=== PATIENT | female | born 1955 | race Caucasian/White ===

== ENCOUNTER 2016-03-01 | Outpatient (CLI) | payer MEDICARE, MEDICAID | END 2016-03-01 18:35 | disposition critical access hospital (66) | CPT/HCPCS: A0425; A0429 ==

== ENCOUNTER 2016-03-01 18:50 | Emergency (ER) | payer MEDICARE, MEDICAID ==
[2016-03-01] MEDS ORDERED: OLANZapine 10 MG VIAL IM ONE (23:28)
[2016-03-01] MEDS ORDERED: WATER FOR INJECTION,STERILE 10 ML ONE (23:29)
[2016-03-01] MEDS ORDERED: OLANZapine 10 MG VIAL IM STA (23:29)
== END 2016-03-02 09:35 ==
DX: F31.2 Bipolar disorder, current episode manic severe with psychotic features (principal); F41.9 Anxiety disorder, unspecified; Z91.14 Patient's other noncompliance with medication regimen
CPT/HCPCS: 36415; 80053; 80306; 80307; 81003; 81025; 83036; 83690; 84443; 85025; 96372; 99284; 99285; G0480

== ENCOUNTER 2016-04-02 | Outpatient (CLI) | payer MEDICARE, MEDICAID | END 2016-04-02 00:19 | disposition critical access hospital (66) | CPT/HCPCS: A0425; A0427 ==

== ENCOUNTER 2016-04-02 00:33 | Emergency (ER) | payer MEDICARE, MEDICAID ==
[2016-04-02] MEDS ORDERED: POTASSIUM CHLOR 20 MEQ/100 ML 100 ML IV ONE (01:39)
[2016-04-02] MEDS ORDERED: POTASSIUM CHLOR 10 MEQ/100 ML 100 ML IV ONE (01:43)
[2016-04-02] MEDS ORDERED: OLANZapine 10 MG VIAL IM STA ×2 (01:48→15:21)
[2016-04-02] MEDS ORDERED: OLANZapine 10 MG VIAL IM ONE ×2 (01:49→15:19)
[2016-04-02] MEDS ORDERED: WATER FOR INJECTION,STERILE 10 ML ONE (15:19)
== END 2016-04-02 20:45 ==
DX: F31.64 Bipolar disorder, current episode mixed, severe, with psychotic features (principal); R40.20 Unspecified coma; X00.0XXA Exposure to flames in uncontrolled fire in building or structure, initial encounter; Y93.84 Activity, sleeping; Y92.003 Bedroom of unspecified non-institutional (private) residence as the place of occurrence of the external cause; Y99.8 Other external cause status; E87.6 Hypokalemia; G35 Multiple sclerosis; M25.572 Pain in left ankle and joints of left foot; Z78.1 Physical restraint status
CPT/HCPCS: 36415; 36600; 71010; 73610; 80053; 80306; 80307; 81001; 81025; 82375; 82550; 82803; 83690; 84132; 84443; 84484; 85025; 93005; 93010; 96372; 96374; 99285; G0480

== ENCOUNTER 2016-05-03 13:54 | Outpatient (CLI) | payer MEDICARE, MEDICAID | END 2016-05-03 13:55 | disposition EMS.NT | DX: Z04.8 Encounter for examination and observation for other specified reasons (principal) ==

== ENCOUNTER 2016-05-03 15:07 | Outpatient (CLI) | payer MEDICAID, MEDICARE | END 2016-05-03 15:08 | disposition EMS.NT | DX: R68.89 Other general symptoms and signs (principal) | CPT/HCPCS: A0425; A0429 ==

== ENCOUNTER 2016-05-03 15:22 | Emergency (ER) | payer MEDICARE, MEDICAID ==
[2016-05-03] MEDS ORDERED: OLANZapine ODT 5 MG TABLET TL ONE ×2 (17:56→17:59)
[2016-05-03] MEDS ORDERED: CETIRIZINE 10 MG TABLET ONE (17:58)
== END 2016-05-03 22:55 ==
DX: F31.9 Bipolar disorder, unspecified (principal); F20.9 Schizophrenia, unspecified
CPT/HCPCS: 36415; 80053; 80306; 80307; 81003; 83690; 85025; 99284; A9270; G0480

== ENCOUNTER 2016-05-03 23:03 | Outpatient (CLI) | payer MEDICARE, MEDICAID | END 2016-05-03 23:04 | DX: F31.9 Bipolar disorder, unspecified (principal) | CPT/HCPCS: A0425; A0428 ==

== ENCOUNTER 2016-10-25 15:13 | Outpatient (CLI) | payer MEDICARE ==
--- NOTE | 2016-10-26 09:42 | XRAY Report ---
LEFT RIBS WITH FRONTAL CHEST: 10/25/2016 CLINICAL INDICATION: Left 2nd rib pain. FINDINGS: Frontal view of the chest and oblique views of the left ribs demonstrate no evidence of a displaced rib fracture. The cardiac silhouette is within normal limits. The lungs are clear. No effus ion or pneumothorax is present. IMPRESSION: NO EVIDENCE OF A DISPLACED LEFT RIB FRACTURE. JOB #: [id number] EXT JOB #:[id number]
--- NOTE | 2016-10-26 09:44 | XRAY Report ---
THREE VIEW LUMBAR SPINE: 10/25/2016 CLINICAL INDICATION: Pain. FINDINGS: AP, lateral, and coned down views of the lumbar spine demonstrate mild degenerative disk a nd facet disease. There is no evidence of fracture or subluxation. The bowel gas pattern appears norm al. IMPRESSION: MILD DEGENERATIVE CHANGES. JOB #: [id number] EXT JOB #:[id number]
--- NOTE | 2016-10-26 09:47 | XRAY Report ---
THREE VIEW LEFT KNEE: 10/25/2016 CLINICAL INDICATION: Contusion, pain. FINDINGS: AP, lateral, and sunrise views of the left knee demonstrate mild osteoarthritis. A small e ffusion is present. There is no evidence of fracture or dislocation. IMPRESSION: MILD OSTEOARTHRITIS, WITH A SMALL EFFUSION. JOB #: [id number] EXT JOB #:[id number]
== END 2016-10-25 15:14 | disposition home or self-care (01) ==
LOC: DI 15:13
PROVIDERS: ATTEND Family Medicine
DX: R07.81 Pleurodynia (principal); M54.5 Low back pain; S80.02XA Contusion of left knee, initial encounter; M17.12 Unilateral primary osteoarthritis, left knee
CPT/HCPCS: 72100

== ENCOUNTER 2016-11-09 20:30 | Outpatient (CLI) | payer MEDICARE | END 2016-11-09 20:31 | disposition critical access hospital (66) | LOC: EMS 20:30 | PROVIDERS: ATTEND Surgery | DX: T42.6X2A Poisoning by other antiepileptic and sedative-hypnotic drugs, intentional self-harm, initial encounter (principal); R40.0 Somnolence; R26.81 Unsteadiness on feet; R41.82 Altered mental status, unspecified | CPT/HCPCS: A0425; A0429 ==

== ENCOUNTER 2016-11-09 20:48 | Emergency (ER) | payer MEDICARE ==
[2016-11-09 21:39] LABS: BILIRUBIN,URINE NEGATIVE (NEGATIVE); PH,URINE 6.5 PH (5.0-7.5)
--- NOTE | 2016-11-09 21:42 | ED Physician Documentation ---
PD HPI MHE - Stated complaint Stated Complaint: OD - Chief complaint Chief Complaint: MHE - History obtained from History obtained from: Patient, EMS - History of Present Illness Primary symptom: Suicidal ideation, Depression, Anxiety Timing - onset: How many days ago (few) Contributing factors: Other (she says she is [place] and it is currently a holy holiday and she is sad that she cannot be in [place]. She is feeling depressed, and this evening was having suicidal thoughts. Denies any action taken. She took 3 Ambien and had some alcohol in order to sleep, but denies it as suicide attempt.) Similar symptoms before: Diagnosis (depression, suicidal ideation, bipolar) Review of Systems Constitutional: denies: Fever Nose: denies: Rhinorrhea / runny nose, Congestion Throat: denies: Sore throat Cardiac: denies: Chest pain / pressure Respiratory: reports: Dyspnea, Cough (mild) GI: denies: Nausea, Vomiting, Diarrhea Skin: denies: Abrasion (s), Laceration (s) Neurologic: denies: Focal weakness, Numbness, Near syncope Psychiatric: reports: Depressed, Suicidal. 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 - Present Medications Home Medications: Ambulatory Orders Medication Instructions Recorded Confirmed ALPRAZolam [Xanax] 0 mg PO .FREQ 05/03/16 05/03/16 - Allergies Allergies/Adverse Reactions: Allergies Allergy/AdvReac Type Severity Reaction Status Date / Time Sulfa (Sulfonamide Allergy Unknown Verified 09/17/15 18:10 Antibiotics) - Living Situation Living Situation: reports: Alone Living Arrangement: reports: At home - Social History Does the pt smoke?: No Smoking Status: Never smoker Does the pt drink ETOH?: Yes ETOH Use: Liquor Does the pt have substance abuse?: No - Family History Family history: reports: Non contributory - POLST Patient has POLST: No PD ED PE NORMAL - Vitals Vital signs reviewed: Yes - General General: Alert and oriented X 3, No acute distress, Well developed/nourished - HEENT HEENT: Atraumatic, Pharynx benign - Neck Neck: Supple, no meningeal sign, No adenopathy - Cardiac Cardiac: RRR, No murmur - Respiratory Respiratory: Clear bilaterally - Abdomen Abdomen: Soft, Non tender - Derm Derm: Normal color, Warm and dry - Extremities Extremities: Normal ROM s pain, No edema, No calf tenderness / cord - Neuro Neuro: Alert and oriented X 3, No motor deficit, Normal speech - Psych Psych: No: Normal mood (somewhat sad, not tearful. ) Results - Vitals Vitals: Vital Signs - 24 hr 11/09/16 11/10/16 20:55 02:11 Temperature 36.3 C L Heart Rate 63 84 Respiratory 18 16 Rate Blood Pressure 116/75 95/53 L O2 Saturation 98 98 Oxygen O2 Source Room air - Labs Labs: Laboratory Tests 11/09/16 11/09/16 11/09/16 21:10 22:05 22:05 WBC 5.4 RBC 4.67 Hgb 14.5 Hct 43.7 MCV 93.6 MCH 31.0 MCHC 33.2 RDW 12.9 Plt Count 263 MPV 7.6 L Neut # 2.4 Lymph # 2.5 [place] # 0.3 Eos # 0.1 Baso # 0.0 Absolute Nucleated RBC 0.00 Nucleated RBCs 0.1 Sodium 141 Potassium 3.8 Chloride 106 Carbon Dioxide 23 Anion Gap 12.0 BUN 13 Creatinine 0.7 Estimated GFR (MDRD) 85 L Glucose 80 Calcium 9.3 Total Bilirubin 0.7 AST 26 ALT 23 Alkaline Phosphatase 57 Total Protein 7.1 Albumin 4.5 Globulin 2.6 Albumin/Globulin Ratio 1.7 Lipase 28 TSH Urine Color YELLOW Urine Clarity CLEAR Urine pH 6.5 Ur Specific [place] <=1.005 Urine Protein NEGATIVE Urine Glucose (UA) NEGATIVE Urine Ketones NEGATIVE Urine Occult Blood NEGATIVE Urine Nitrite NEGATIVE Urine Bilirubin NEGATIVE Urine Urobilinogen 0.2 (NORMAL) Ur Leukocyte Esterase NEGATIVE Ur Microscopic Review NOT INDICATED Urine Culture Comments NOT INDICATED Salicylates < 6.0 Urine Opiates Screen NEGATIVE Ur Oxycodone Screen NEGATIVE Urine Methadone Screen NEGATIVE Ur Propoxyphene Screen NEGATIVE Acetaminophen < 10 L Ur Barbiturates Screen NEGATIVE Ur Tricyclics Screen NEGATIVE Ur Phencyclidine Scrn NEGATIVE Ur Amphetamine Screen NEGATIVE U Methamphetamines Scrn NEGATIVE U Benzodiazepines Scrn NEGATIVE Urine Cocaine Screen NEGATIVE U Cannabinoids Screen NEGATIVE Ethyl Alcohol 115.3 11/09/16 22:05 WBC RBC Hgb Hct MCV MCH MCHC RDW Plt Count MPV Neut # Lymph # [place] # Eos # Baso # Absolute Nucleated RBC Nucleated RBCs Sodium Potassium Chloride Carbon Dioxide Anion Gap BUN Creatinine Estimated GFR (MDRD) Glucose Calcium Total Bilirubin AST ALT Alkaline Phosphatase Total Protein Albumin Globulin Albumin/Globulin Ratio Lipase TSH 1.24 Urine Color Urine Clarity Urine pH Ur Specific [place] Urine Protein Urine Glucose (UA) Urine Ketones Urine Occult Blood Urine Nitrite Urine Bilirubin Urine Urobilinogen Ur Leukocyte Esterase Ur Microscopic Review Urine Culture Comments Salicylates Urine Opiates Screen Ur Oxycodone Screen Urine Methadone Screen Ur Propoxyphene Screen Acetaminophen Ur Barbiturates Screen Ur Tricyclics Screen Ur Phencyclidine Scrn Ur Amphetamine Screen U Methamphetamines Scrn U Benzodiazepines Scrn Urine Cocaine Screen U Cannabinoids Screen Ethyl Alcohol PD MEDICAL DECISION MAKING - ED course Complexity details: reviewed results, re-evaluated patient (sleepy but not overly sedated. Breathing status is okay. ), considered differential (She says she does not want to go home right now and says she does not know if she would hurt herself. She denies suicidal intent here in ED. She would like to go to [facility]. [facility] Patient resting comfortably and sleeping in ED. At this point would presume to have her stay overnight and then reassess in AM; SW in AM. ), d/w patient, other (Patient slept well through night. She is calm and relaxed on awakening. She denies suicidal ideation. She wants to get to restorationist for [place], and promises that she does not want to hurt herself. Will discharge her. She is going to call friend for a ride. ) Departure - Departure Disposition: 01 Home, Self Care Clinical Impression: Anxiety, Suicidal ideation Depression Qualifiers: Depression Type: unspecified Qualified Code(s): F32.9 - Major depressive disorder, single episode, unspecified Alcohol intoxication Qualifiers: Complication of substance-induced condition: uncomplicated Qualified Code(s): F10.920 - Alcohol use, unspecified with intoxication, uncomplicated Condition: Stable Record reviewed to determine appropriate education?: Yes Instructions: ED Depression Comments: Usual medications and drink lots of fluids. Return or follow-up with your primary care if he has feelings of depression or wanting to hurt yourself. You could also call the crisis line if you need someone to talk to.
[2016-11-09 21:43] LABS: UA CHARGE (STRIP ONLY) YES; UR CULTURE IF IND NOT INDICATED
[2016-11-09 22:14] LABS: BASOPHILS % (AUTO) 0.7 %; EOSINOPHILS # (AUTO) 0.1 10^3/uL (0.0-0.7); EOSINOPHILS % (AUTO) 2.3 %; HCT - HEMATOCRIT 43.7 % (37.0-47.0); HGB - HEMOGLOBIN 14.5 g/dL (12.0-16.0); LYMPHOCYTES # (AUTO) 2.5 10^3/uL (1.5-3.5); LYMPHOCYTES % (AUTO) 45.7 %; MEAN CORPUSCULAR HGB CONC 33.2 g/dL (32.0-36.0); MEAN CORPUSCULAR VOLUME 93.6 fL (81.0-99.0); MEAN PLATELET VOLUME 7.6 fL (7.9-10.8); MONOCYTES # (AUTO) 0.3 10^3/uL (0.0-1.0); MONOCYTES % (AUTO) 6.4 %; NEUTROPHILS # (AUTO) 2.4 10^3/uL (1.5-6.6); NEUTROPHILS % (AUTO) 44.9 %; NUCLEATED RED BLOOD CELLS AUTO 0.1 /100WBC; RED BLOOD COUNT 4.67 10^6/uL (4.20-5.40); RED CELL DISTRIBUTION WIDTH 12.9 % (12.0-15.0); UNCORRECTED WHITE BLOOD COUNT 5.4 x10^3/uL; WHITE BLOOD COUNT 5.4 x10^3/uL (4.8-10.8)
[2016-11-09 22:27] LABS: ACETAMINOPHEN < 10 ug/mL (10-30); ALBUMIN/GLOBULIN RATIO 1.7 (1.0-2.2); BILIRUBIN,TOTAL 0.7 mg/dL (0.2-1.0); BUN - BLOOD UREA NITROGEN 13 mg/dL (6-20); CALCIUM 9.3 mg/dL (8.5-10.3); CARBON DIOXIDE - CO2 23 mmol/L (21-32); CHLORIDE 106 mmol/L (101-111); CREATININE 0.7 mg/dL (0.4-1.0); GFR - MDRD 85 (>89); GLUCOSE 80 mg/dL (70-100); LIPASE 28 U/L (22-51); POTASSIUM 3.8 mmol/L (3.5-5.0); SALICYLATE < 6.0 mg/dL; SODIUM 141 mmol/L (135-145); TOTAL PROTEIN 7.1 g/dL (6.7-8.2)
[2016-11-10 06:58] VITALS: BP 101/63
== END 2016-11-10 06:59 | disposition home or self-care (01) ==
LOC: EDUNIT# → ED 20:48
DX: F41.9 Anxiety disorder, unspecified (principal); R45.851 Suicidal ideations; F32.9 Major depressive disorder, single episode, unspecified; F10.920 Alcohol use, unspecified with intoxication, uncomplicated
CPT/HCPCS: 36415; 80053; 80306; 80307; 81003; 83690; 84443; 85025; 99283; 99284; G0480; 80320; 80329; 81001; 87086

== ENCOUNTER 2016-11-12 17:10 | Outpatient (CLI) | payer MEDICARE ==
--- NOTE | 2016-11-12 19:34 | Ultrasound Preliminary Report ---
Exam: US Pelvic w/Transvaginal IMPRESSION: 1. Unremarkable pelvic ultrasound. 2. Right ovary not visualized due to obscuring bowel. No adnexal abnormality demonstrated. [facility] SITE ID: [id number]
--- NOTE | 2016-11-12 19:37 | Ultrasound Report ---
EXAM: PELVIC ULTRASOUND EXAM DATE: 11/12/2016 07:11 PM. CLINICAL HISTORY: UTI, VAGINAL BLEEDING. COMPARISON: No ultrasound comparison. CT abdomen pelvis 01/21/2015. TECHNIQUE: Realtime transabdominal pelvic scan performed to identify the uterus and adnexa and as an overview of other pelvic structures, followed by transvaginal scan to provide greater detail of the u terus and adnexa, with static image documentation. FINDINGS: Uterus: 6.0 x 2.3 x 4.1 cm, volume 30 cc. Anteflexed position. Normal overall size and echotexture. Masses: None. Endometrium: 4.1 mm. Normal. Cervix: Unremarkable. Right Ovary: Not visualized due to obscuring bowel. No adnexal abnormality demonstrated. Left Ovary: Only visualized transvaginally. 2.9 x 1.2 x 1.6 cm, volume 2.9 cc. Normal echotexture and blood flow. Free Fluid: None. Other: None. IMPRESSION: 1. Unremarkable pelvic ultrasound. 2. Right ovary not visualized due to obscuring bowel. No adnexal abnormality demonstrated. [facility] Referring Provider Line: [phone] SITE ID: [id number]
== END 2016-11-12 17:11 | disposition home or self-care (01) ==
LOC: DI 17:10
PROVIDERS: ATTEND Specialist
DX: N39.0 Urinary tract infection, site not specified (principal); N93.9 Abnormal uterine and vaginal bleeding, unspecified
CPT/HCPCS: 76830; 76856

== ENCOUNTER 2016-11-14 13:26 | Outpatient (CLI) | payer MEDICARE ==
--- NOTE | 2016-11-12 19:31 | Ultrasound Preliminary Report ---
Exam: US Abdomen Complete IMPRESSION: 1. No definite abnormality of the abdomen. 2. Echogenic foci in the left kidney are likely artifactual. Nonobstructing small calculi considered less likely. If further evaluation for nephrolithiasis or indicated, a CT KUB would be recommended. [facility] SITE ID: [id number]
--- NOTE | 2016-11-12 19:34 | Ultrasound Report ---
EXAM: ABDOMEN ULTRASOUND EXAM DATE: 11/12/2016 07:04 PM. CLINICAL HISTORY: ABD PAIN UTI. COMPARISON: No ultrasound comparison. CT abdomen and pelvis with contrast 01/21/2015 . TECHNIQUE: Real-time scanning was performed with static images obtained. FINDINGS: Liver: Normal in size and echotexture. 14 cm. Main portal vein flow: Hepatopetal. Gallbladder: Normal. No stones, wall thickening, or sonographic Brown's sign. Biliary System: Common bile duct measures 4.2 mm. No intrahepatic or extrahepatic ductal dilatation. Pancreas: Visualized portion is unremarkable. Kidneys: Right: 9.8 cm longitudinally. Normal. No contour-deforming mass, stones, or hydronephrosis. Left: 10.1 cm longitudinally. No hydronephrosis or mass. Small echogenic foci without keiko distal sh adowing likely representing artifact. Small nonobstructing stones are less likely but not excluded. N o definite stones demonstrated on the prior CT exam. Spleen: Maximum diameter 7.6 cm. Normal in size and echotexture. Aorta and Inferior Vena Cava: Unremarkable. IMPRESSION: 1. No definite abnormality of the abdomen. 2. Echogenic foci in the left kidney are likely artifactual. Nonobstructing small calculi considered less likely. If further evaluation for nephrolithiasis or indicated, a CT KUB would be recommended. [facility] Referring Provider Line: [phone] SITE ID: [id number]
--- NOTE | 2016-11-15 13:08 | Mammography Report ---
DIGITAL SCREENING MAMMOGRAM: 11/14/2016 CLINICAL INDICATION: A 61-year-old with history of late childbearing for screening. COMPARISON: 02/2015 TECHNIQUE: Routine CC and MLO projections were obtained of the breasts. FINDINGS: The breasts again demonstrate heterogeneously dense fibroglandular parenchyma bilaterally. Coarse and punctate, typically benign calcifications are present. No suspicious masses, clustered microcalcifications, or regions of architectural distortion are identified. IMPRESSION: BENIGN FINDINGS. RECOMMENDATION: Routine annual screening unless otherwise clinically indicated. BI-RADS category 2, benign findings. STANDARD QUALIFYING STATEMENTS 1. This examination was reviewed with the aid of Computer-Aided Detection (CAD). 2. A negative or benign imaging report should not delay biopsy if clinically suspicious findings are present. Consider surgical consultation if warranted. More than 5% of cancers are not identified by i maging. 3. Dense breasts may obscure an underlying neoplasm. JOB #: [id number] EXT JOB #:[id number]
== END 2016-11-14 13:27 | disposition home or self-care (01) ==
LOC: DI 13:26
PROVIDERS: ATTEND Specialist
DX: Z12.31 Encounter for screening mammogram for malignant neoplasm of breast (principal)
CPT/HCPCS: 76700; G0202; 77067

== ENCOUNTER 2016-11-24 21:46 | Outpatient (CLI) | payer MEDICARE | END 2016-11-24 21:47 | disposition critical access hospital (66) | LOC: EMS 21:46 | PROVIDERS: ATTEND Surgery | DX: R45.851 Suicidal ideations (principal) | CPT/HCPCS: A0425; A0429 ==

== ENCOUNTER 2016-11-24 22:03 | Emergency (ER) | payer MEDICARE ==
[2016-11-24 22:20] VITALS: BP 137/93
[2016-11-24 22:30] LABS: BASOPHILS % (AUTO) 0.5 %; EOSINOPHILS % (AUTO) 0.3 %; HGB - HEMOGLOBIN 13.6 g/dL (12.0-16.0); LYMPHOCYTES # (AUTO) 3.6 10^3/uL (1.5-3.5); LYMPHOCYTES % (AUTO) 42.8 %; MEAN CORPUSCULAR HEMOGLOBIN 30.7 pg (27.0-31.0); MEAN CORPUSCULAR HGB CONC 33.2 g/dL (32.0-36.0); MEAN CORPUSCULAR VOLUME 92.6 fL (81.0-99.0); MEAN PLATELET VOLUME 7.1 fL (7.9-10.8); MONOCYTES # (AUTO) 0.6 10^3/uL (0.0-1.0); MONOCYTES % (AUTO) 6.6 %; NEUTROPHILS # (AUTO) 4.2 10^3/uL (1.5-6.6); NEUTROPHILS % (AUTO) 49.8 %; NUCLEATED RED BLOOD CELLS AUTO 0.1 /100WBC; RED BLOOD COUNT 4.43 10^6/uL (4.20-5.40); RED CELL DISTRIBUTION WIDTH 12.8 % (12.0-15.0); UNCORRECTED WHITE BLOOD COUNT 8.4 x10^3/uL; WHITE BLOOD COUNT 8.4 x10^3/uL (4.8-10.8)
[2016-11-24 22:44] LABS: ALBUMIN/GLOBULIN RATIO 1.6 (1.0-2.2); BILIRUBIN,TOTAL 0.7 mg/dL (0.2-1.0); BUN - BLOOD UREA NITROGEN 17 mg/dL (6-20); CALCIUM 9.4 mg/dL (8.5-10.3); CARBON DIOXIDE - CO2 24 mmol/L (21-32); CHLORIDE 102 mmol/L (101-111); CREATININE 0.7 mg/dL (0.4-1.0); GFR - MDRD 85 (>89); GLUCOSE 108 mg/dL (70-100); LIPASE 27 U/L (22-51); POTASSIUM 3.2 mmol/L (3.5-5.0); SALICYLATE < 6.0 mg/dL; SODIUM 137 mmol/L (135-145); TOTAL PROTEIN 7.3 g/dL (6.7-8.2)
[2016-11-24 22:48] LABS: ACETAMINOPHEN < 10 ug/mL (10-30)
[2016-11-25 00:07] LABS: BILIRUBIN,URINE NEGATIVE (NEGATIVE); PH,URINE 6.5 PH (5.0-7.5)
[2016-11-25 00:11] LABS: UA CHARGE (STRIP ONLY) YES; UR CULTURE IF IND NOT INDICATED
[2016-11-25] MEDS ORDERED: POTASSIUM CHLORIDE 20 MEQ TABLET PO STA (00:25)
--- NOTE | 2016-11-25 00:26 | ED Physician Documentation ---
PD HPI MHE - Stated complaint Stated Complaint: SI/OD - Chief complaint Chief Complaint: MHE - History obtained from History obtained from: Patient, EMS - History of Present Illness Primary symptom: Suicidal ideation, Depression Timing - onset: Today Contributing factors: Other Similar symptoms before: Work up / diagnostics, Treatment Recently seen: Not recently seen - Additional information Additional information: Patient is a 61 year old female with a history of depression and multiple personality disorders who is presenting to the emergency department for depression and reported overdose. According to ems patient called the crisis line twice today saying that she took too many pills. when ems went the first time the patient refused. when ems went the second time patient was convinced to go. 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 patient states that she took two ambien but has no desire to kill herself. Review of Systems Constitutional: denies: Fever, Chills Eyes: denies: Decreased vision Ears: reports: Reviewed and negative Nose: reports: Reviewed and negative Throat: reports: Reviewed and negative Cardiac: denies: Chest pain / pressure, Palpitations Respiratory: denies: Dyspnea, Cough GI: reports: Reviewed and negative : reports: Reviewed and negative Skin: reports: Reviewed and negative Musculoskeletal: reports: Reviewed and negative Neurologic: denies: Confused, Altered mental status, Headache, Head injury, LOC Psychiatric: reports: Depressed, Delusions. 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 - Present Medications Home Medications: Ambulatory Orders Medication Instructions Recorded Confirmed ALPRAZolam [Xanax] 0 mg PO .FREQ 05/03/16 05/03/16 - Allergies Allergies/Adverse Reactions: Allergies Allergy/AdvReac Type Severity Reaction Status Date / Time Sulfa (Sulfonamide Allergy Unknown Verified 09/17/15 18:10 Antibiotics) - Social History Does the pt smoke?: No Smoking Status: Never smoker Does the pt drink ETOH?: Yes Does the pt have substance abuse?: No - POLST Patient has POLST: No PD ED PE NORMAL - Vitals Vital signs reviewed: Yes - General General: Alert and oriented X 3, No acute distress, Well developed/nourished - HEENT HEENT: Atraumatic, PERRL, Pharynx benign - Neck Neck: Supple, no meningeal sign, No JVD - Cardiac Cardiac: RRR, No murmur - Respiratory Respiratory: No respiratory distress, Clear bilaterally - Abdomen Abdomen: Soft, Non distended - Derm Derm: Normal color, Warm and dry, No rash - Extremities Extremities: No deformity, No tenderness to palpate, Normal ROM s pain, No edema - Neuro Neuro: Alert and oriented X 3, No motor deficit, No sensory deficit, Normal speech - Psych Psych: Normal mood Results - Vitals Vitals: Vital Signs - 24 hr 11/24/16 22:05 Temperature 36.7 C Heart Rate 100 Respiratory 20 Rate Blood Pressure 137/93 H O2 Saturation 100 Oxygen O2 Source Room air - Labs Labs: Laboratory Tests 11/24/16 11/24/16 11/24/16 22:24 22:24 22:24 WBC 8.4 RBC 4.43 Hgb 13.6 Hct 41.0 MCV 92.6 MCH 30.7 MCHC 33.2 RDW 12.8 Plt Count 293 MPV 7.1 L Neut # 4.2 Lymph # 3.6 H [place] # 0.6 Eos # 0.0 Baso # 0.0 Absolute Nucleated RBC 0.01 Nucleated RBC % 0.1 Sodium 137 Potassium 3.2 L Chloride 102 Carbon Dioxide 24 Anion Gap 11.0 BUN 17 Creatinine 0.7 Estimated GFR (MDRD) 85 L Glucose 108 H Calcium 9.4 Total Bilirubin 0.7 AST 23 ALT 27 Alkaline Phosphatase 53 Total Protein 7.3 Albumin 4.5 Globulin 2.8 Albumin/Globulin Ratio 1.6 Lipase 27 TSH 1.82 Urine Color Urine Clarity Urine pH Ur Specific [place] Urine Protein Urine Glucose (UA) Urine Ketones Urine Occult Blood Urine Nitrite Urine Bilirubin Urine Urobilinogen Ur Leukocyte Esterase Ur Microscopic Review Urine Culture Comments Salicylates < 6.0 Urine Opiates Screen Ur Oxycodone Screen Urine Methadone Screen Ur Propoxyphene Screen Acetaminophen < 10 L Ur Barbiturates Screen Ur Tricyclics Screen Ur Phencyclidine Scrn Ur Amphetamine Screen U Methamphetamines Scrn U Benzodiazepines Scrn Urine Cocaine Screen U Cannabinoids Screen Ethyl Alcohol < 5.0 11/25/16 00:00 WBC RBC Hgb Hct MCV MCH MCHC RDW Plt Count MPV Neut # Lymph # [place] # Eos # Baso # Absolute Nucleated RBC Nucleated RBC % Sodium Potassium Chloride Carbon Dioxide Anion Gap BUN Creatinine Estimated GFR (MDRD) Glucose Calcium Total Bilirubin AST ALT Alkaline Phosphatase Total Protein Albumin Globulin Albumin/Globulin Ratio Lipase TSH Urine Color YELLOW Urine Clarity CLEAR Urine pH 6.5 Ur Specific [place] 1.020 Urine Protein NEGATIVE Urine Glucose (UA) NEGATIVE Urine Ketones NEGATIVE Urine Occult Blood NEGATIVE Urine Nitrite NEGATIVE Urine Bilirubin NEGATIVE Urine Urobilinogen 0.2 (NORMAL) Ur Leukocyte Esterase NEGATIVE Ur Microscopic Review NOT INDICATED Urine Culture Comments NOT INDICATED Salicylates Urine Opiates Screen NEGATIVE Ur Oxycodone Screen NEGATIVE Urine Methadone Screen NEGATIVE Ur Propoxyphene Screen NEGATIVE Acetaminophen Ur Barbiturates Screen NEGATIVE Ur Tricyclics Screen NEGATIVE Ur Phencyclidine Scrn NEGATIVE Ur Amphetamine Screen NEGATIVE U Methamphetamines Scrn NEGATIVE U Benzodiazepines Scrn NEGATIVE Urine Cocaine Screen NEGATIVE U Cannabinoids Screen NEGATIVE Ethyl Alcohol PD MEDICAL DECISION MAKING - ED course Complexity details: reviewed old records, reviewed results, re-evaluated patient , considered differential, d/w patient, 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 patient was well appearing and in no acute distress. labs were drawn and urine was collected. Patient's diagnostics were within normal limits. Patient showed no physical signs of ambien or other overdose. Patient was awake, alert and oriented and stated that she did not want to stay. there was no indication for keeping the patient against her will. Patient required no further work up. 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 Departure - Departure Disposition: 01 Home, Self Care Clinical Impression: Depression Condition: Good Instructions: ED Stress React Follow-Up: RENE SAUCEDO [Primary Care Provider] - Tomorrow Comments: You should follow up with your doctor and therapist tomorrow. You should return to the emergency department at any time if you have any thoughts of hurting yourself, or anyone else. Discharge Date/Time: 11/25/16 01:10
[2016-11-25] MEDS ORDERED: POTASSIUM CHLORIDE 20 MEQ TABLET PO ONE (01:09)
== END 2016-11-25 01:10 | disposition home or self-care (01) ==
LOC: EDUNIT# → ED 22:03
DX: F32.9 Major depressive disorder, single episode, unspecified (principal); F44.81 Dissociative identity disorder
CPT/HCPCS: 36415; 80053; 80306; 80307; 81003; 83690; 84443; 85025; 99283; A9270; G0480; 80320; 80329; 81001; 87086

== ENCOUNTER 2016-11-26 16:54 | Emergency (ER) | payer MEDICARE ==
[2016-11-26] MEDS ORDERED: ASPIRIN CHEW 81 MG TABLET PO STA (17:10)
[2016-11-26] MEDS ORDERED: KETOROLAC 60 MG/2 ML VIAL IVP STA (17:10)
--- NOTE | 2016-11-26 17:13 | ED Physician Documentation ---
PD HPI CHEST PAIN - Stated complaint Stated Complaint: CHEST PX - Chief complaint Chief Complaint: Cardiac - History obtained from History obtained from: Patient - History of Present Illness Timing - onset: Last night Timing - details: Gradual onset Pain level max: 8 Pain level now: 8 Quality: Other ("Like someone punched me") Location: Right chest Radiation: Other (Nonradiating) Associated symptoms: No: Shortness of air, Diaphoresis, Nausea, Vomiting, Feeling faint / dizzy, General Weakness, Palpitations, Cough Similar symptoms before: Has not had sx before Recently seen: Emergency Dept (Seen here 2 days ago for a possible overdose) - Additional information Additional information: Patient is a 61-year-old female who presents to the emergency department with right-sided chest pain since last night. States that this prevented her from sleeping well. The chest pain did resolve this morning and then she went on a 3 mile hike today, did not have any chest pain during the hike, [place] right-sided chest pain. Worse with movement and palpation. Better with not moving. Does not change with inspiration or exertion. Went to see her doctor today and was informed to come here for the chest pain. Did not take any aspirin prior to arrival. Has not taken anything for the pain. The pain has been present for approximately 2 hours continuously this time. Denies any recent illnesses, surgery, travel No history of blood clots Review of Systems Ten Systems: 10 systems reviewed and negative Constitutional: denies: Fever, Chills Nose: denies: Rhinorrhea / runny nose, Congestion Throat: denies: Sore throat Cardiac: denies: Palpitations Respiratory: denies: Dyspnea, Cough, Hemoptysis, Wheezing GI: denies: Abdominal Pain, Nausea, Vomiting, Diarrhea : denies: Dysuria Skin: denies: Rash Musculoskeletal: denies: Neck pain, Back pain Neurologic: denies: Headache PD PAST MEDICAL HISTORY - Past Medical History Past Medical History: Yes Cardiovascular: None Respiratory: None Endocrine/Autoimmune: None Psych: Depression, Anxiety, Schizophrenia - Past Surgical History 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 - Present Medications Home Medications: Ambulatory Orders Medication Instructions Recorded Confirmed ALPRAZolam [Xanax] 0 mg PO .FREQ 05/03/16 05/03/16 Cyclobenzaprine [Flexeril] 10 mg PO TID PRN #20 tablet 11/26/16 Meloxicam [Mobic] 7.5 mg PO BID PRN #20 tablet 11/26/16 - Allergies Allergies/Adverse Reactions: Allergies Allergy/AdvReac Type Severity Reaction Status Date / Time Sulfa (Sulfonamide Allergy Unknown Verified 09/17/15 18:10 Antibiotics) - Social History Does the pt smoke?: No Smoking Status: Never smoker Does the pt drink ETOH?: Yes Does the pt have substance abuse?: No - POLST Patient has POLST: No PD ED PE NORMAL - Vitals Vital signs reviewed: Yes - General General: Alert and oriented X 3, No acute distress - HEENT HEENT: Moist mucous membranes - Neck Neck: Supple, no meningeal sign - Cardiac Cardiac: RRR, No murmur, Strong equal pulses - Respiratory Respiratory: No respiratory distress, Clear bilaterally, Other (Tender to palpation over the right anterior chest wall. Reproduces her pain. Worse with moving the arm) - Abdomen Abdomen: Soft, Non tender, Non distended - Derm Derm: Warm and dry - Extremities Extremities: No edema, No calf tenderness / cord - Neuro Neuro: Alert and oriented X 3 - Psych Psych: Normal mood, Normal affect Results - Vitals Vitals: Vital Signs - 24 hr 11/26/16 11/26/16 11/26/16 17:00 17:55 18:49 Temperature 36.6 C 36.5 C Heart Rate 61 54 L 55 L Respiratory 16 15 16 Rate Blood Pressure 111/70 118/78 109/72 O2 Saturation 100 97 97 Oxygen O2 Source Room air - EKG (time done) 1705 Rate: Rate (enter#) (48) Rhythm: Sinus bradycardia [place]: Normal Intervals: Normal SD QRS: Normal Ischemia: Normal ST segments - Labs Labs: Laboratory Tests 11/26/16 11/26/16 11/26/16 18:07 18:07 18:07 WBC 9.0 RBC 4.24 Hgb 13.1 Hct 39.2 MCV 92.4 MCH 30.9 MCHC 33.5 RDW 13.2 Plt Count 289 MPV 7.1 L Neut # 3.9 Lymph # 4.3 H [place] # 0.6 Eos # 0.1 Baso # 0.1 Absolute Nucleated RBC 0.01 Nucleated RBC % 0.1 D-Dimer < 200.0 L Sodium 137 Potassium 3.4 L Chloride 103 Carbon Dioxide 26 Anion Gap 8.0 BUN 21 H Creatinine 0.9 Estimated GFR (MDRD) 64 L Glucose 90 Calcium 8.8 Total Bilirubin 0.8 AST 19 ALT 22 Alkaline Phosphatase 53 Troponin I Total Protein 6.6 L Albumin 4.2 Globulin 2.4 Albumin/Globulin Ratio 1.8 Lipase 29 11/26/16 18:07 WBC RBC Hgb Hct MCV MCH MCHC RDW Plt Count MPV Neut # Lymph # [place] # Eos # Baso # Absolute Nucleated RBC Nucleated RBC % D-Dimer Sodium Potassium Chloride Carbon Dioxide Anion Gap BUN Creatinine Estimated GFR (MDRD) Glucose Calcium Total Bilirubin AST ALT Alkaline Phosphatase Troponin I < 0.04 Total Protein Albumin Globulin Albumin/Globulin Ratio Lipase - Rads (name of study) cxr Radiology: Prelim report reviewed, EMP read contemporaneously, See rad report ( normal) PD MEDICAL DECISION MAKING - ED course Complexity details: reviewed results, re-evaluated patient, considered differential (No ST elevation NV, no aortic dissection, no PE, no tension pneumothorax, no aortic aneurysm), d/w patient ED course: Patient is a 61-year-old female with right-sided chest pain since last night. Symptoms improved with Toradol and muscle relaxants in the emergency department. Negative d-dimer. No evidence of acute coronary syndrome. Normal EKG. Normal chest x-ray. We will continue supportive care and follow-up with her doctor. Patient counseled regarding signs and symptoms for which I believe and urgent re-evaluation would be necessary. Patient with good understanding of and agreement to plan and is comfortable going home at this time This document was made in part using voice recognition software. While efforts are made to proofread this document, sound alike and grammatical errors may occur. Departure - Departure Disposition: Home, Self Care Clinical Impression: Chest pain Qualifiers: Chest pain type: unspecified Qualified Code(s): R07.9 - Chest pain, unspecified Condition: Good Instructions: ED Chest Pain Atypical Unkn Cause Follow-Up: RENE SAUCEDO [Physician No Access] - Within 1 week Prescriptions: Cyclobenzaprine [Flexeril] 10 mg PO TID PRN #20 tablet PRN Reason: Spasms Meloxicam [Mobic] 7.5 mg PO BID PRN #20 tablet PRN Reason: pain Comments: Return if you worsen. Your tests are normal today. You can use motrin or tylenol as needed for pain. Do not drive or operate heavy machinery while taking the flexeril Discharge Date/Time: 11/26/16 18:53
[2016-11-26] MEDS ORDERED: ASPIRIN CHEW 81 MG TABLET ONE (17:19)
[2016-11-26] MEDS ORDERED: KETOROLAC 30 MG/ML VIAL ONE (17:19)
[2016-11-26 18:18] LABS: BASOPHILS # (AUTO) 0.1 10^3/uL (0.0-0.1); BASOPHILS % (AUTO) 0.7 %; EOSINOPHILS # (AUTO) 0.1 10^3/uL (0.0-0.7); EOSINOPHILS % (AUTO) 1.1 %; HCT - HEMATOCRIT 39.2 % (37.0-47.0); HGB - HEMOGLOBIN 13.1 g/dL (12.0-16.0); LYMPHOCYTES # (AUTO) 4.3 10^3/uL (1.5-3.5); LYMPHOCYTES % (AUTO) 48.2 %; MEAN CORPUSCULAR HEMOGLOBIN 30.9 pg (27.0-31.0); MEAN CORPUSCULAR HGB CONC 33.5 g/dL (32.0-36.0); MEAN CORPUSCULAR VOLUME 92.4 fL (81.0-99.0); MEAN PLATELET VOLUME 7.1 fL (7.9-10.8); MONOCYTES # (AUTO) 0.6 10^3/uL (0.0-1.0); MONOCYTES % (AUTO) 6.8 %; NEUTROPHILS # (AUTO) 3.9 10^3/uL (1.5-6.6); NEUTROPHILS % (AUTO) 43.2 %; NUCLEATED RED BLOOD CELLS AUTO 0.1 /100WBC; RED BLOOD COUNT 4.24 10^6/uL (4.20-5.40); RED CELL DISTRIBUTION WIDTH 13.2 % (12.0-15.0)
[2016-11-26 18:27] LABS: ALBUMIN/GLOBULIN RATIO 1.8 (1.0-2.2); BILIRUBIN,TOTAL 0.8 mg/dL (0.2-1.0); CALCIUM 8.8 mg/dL (8.5-10.3); CREATININE 0.9 mg/dL (0.4-1.0); POTASSIUM 3.4 mmol/L (3.5-5.0); TOTAL PROTEIN 6.6 g/dL (6.7-8.2)
--- NOTE | 2016-11-26 18:29 | XRAY Preliminary Report ---
Exam: XR Chest 1 View IMPRESSION: No acute pulmonary consolidation. [facility] SITE ID: [id number]
--- NOTE | 2016-11-26 18:32 | XRAY Report ---
EXAM: CHEST RADIOGRAPHY EXAM DATE: 11/26/2016 05:42 PM. CLINICAL HISTORY: Chest pain. COMPARISON: Chest x-ray 10/25/2016. TECHNIQUE: 1 view. FINDINGS: Lungs/Pleura: Mild hypoaeration without pleural effusion or pneumothorax. No focal consolidation. Mediastinum: Normal heart size with mild aortic tortuosity. Other: None. IMPRESSION: No acute pulmonary consolidation. [facility] Referring Provider Line: [phone] SITE ID: [id number]
[2016-11-26] MEDS ORDERED: CYCLOBENZAPRINE 10 MG TABLET PO STA (18:40)
[2016-11-26] MEDS ORDERED: CYCLOBENZAPRINE 10 MG TABLET PO ONE (18:47)
[2016-11-26 18:50] VITALS: BP 109/72
== END 2016-11-26 18:53 | disposition home or self-care (01) ==
LOC: ED 16:54
DX: R07.9 Chest pain, unspecified (principal); R00.1 Bradycardia, unspecified
CPT/HCPCS: 36415; 71010; 80053; 83690; 84484; 85025; 85379; 93005; 96374; 99284; 99285; A9270

== ENCOUNTER 2016-12-09 10:26 | Outpatient (CLI) | payer MEDICARE | END 2016-12-09 10:27 | disposition EMS.NT | LOC: EMS 10:26 | PROVIDERS: ATTEND Surgery | DX: R53.1 Weakness (principal); R47.9 Unspecified speech disturbances; R25.1 Tremor, unspecified; R45.1 Restlessness and agitation ==

== ENCOUNTER 2016-12-09 15:03 | Outpatient (CLI) | payer MEDICARE | END 2016-12-09 15:04 | disposition critical access hospital (66) | LOC: EMS 15:03 | PROVIDERS: ATTEND Surgery | DX: R41.82 Altered mental status, unspecified (principal) | CPT/HCPCS: A0425; A0429 ==

== ENCOUNTER 2016-12-09 15:22 | Emergency (ER) | payer MEDICARE ==
[2016-12-09 15:55] LABS: BASOPHILS % (AUTO) 0.6 %; EOSINOPHILS % (AUTO) 0.6 %; HCT - HEMATOCRIT 41.4 % (37.0-47.0); HGB - HEMOGLOBIN 14.1 g/dL (12.0-16.0); LYMPHOCYTES # (AUTO) 2.2 10^3/uL (1.5-3.5); LYMPHOCYTES % (AUTO) 27.9 %; MEAN CORPUSCULAR HEMOGLOBIN 30.9 pg (27.0-31.0); MEAN CORPUSCULAR HGB CONC 34.1 g/dL (32.0-36.0); MEAN CORPUSCULAR VOLUME 90.6 fL (81.0-99.0); MEAN PLATELET VOLUME 6.9 fL (7.9-10.8); MONOCYTES # (AUTO) 0.5 10^3/uL (0.0-1.0); MONOCYTES % (AUTO) 5.9 %; NEUTROPHILS # (AUTO) 5.2 10^3/uL (1.5-6.6); RED BLOOD COUNT 4.56 10^6/uL (4.20-5.40); RED CELL DISTRIBUTION WIDTH 12.8 % (12.0-15.0); UNCORRECTED WHITE BLOOD COUNT 7.9 x10^3/uL; WHITE BLOOD COUNT 7.9 x10^3/uL (4.8-10.8)
[2016-12-09 16:15] LABS: ALBUMIN/GLOBULIN RATIO 1.7 (1.0-2.2); BILIRUBIN,TOTAL 1.4 mg/dL (0.2-1.0); BUN - BLOOD UREA NITROGEN 12 mg/dL (6-20); CALCIUM 9.4 mg/dL (8.5-10.3); CARBON DIOXIDE - CO2 20 mmol/L (21-32); CHLORIDE 98 mmol/L (101-111); CREATININE 0.7 mg/dL (0.4-1.0); GFR - MDRD 85 (>89); GLUCOSE 106 mg/dL (70-100); LIPASE 20 U/L (22-51); POTASSIUM 3.6 mmol/L (3.5-5.0); SALICYLATE < 6.0 mg/dL; SODIUM 133 mmol/L (135-145); TOTAL PROTEIN 7.8 g/dL (6.7-8.2)
[2016-12-09] MEDS ORDERED: ACETAMINOPHEN 325 MG TABLET PO STA (16:24)
[2016-12-09 16:34] LABS: ACETAMINOPHEN < 10 ug/mL (10-30)
[2016-12-09] MEDS ORDERED: ACETAMINOPHEN 325 MG TABLET PO ONE (16:51)
[2016-12-09] MEDS ORDERED: OLANZapine 10 MG VIAL IM STA (17:47)
[2016-12-09] MEDS ORDERED: OLANZapine 10 MG VIAL IM ONE (17:57)
[2016-12-09 18:50] VITALS: BP 115/81
--- NOTE | 2016-12-09 18:55 | ED Physician Documentation ---
PD HPI MHE - Stated complaint Stated Complaint: MHE - Chief complaint Chief Complaint: MHE - History obtained from History obtained from: Patient, EMS - History of Present Illness Primary symptom: Manic Timing - onset: Unknown Pain level max: 0 Pain level now: 0 Similar symptoms before: Diagnosis (bipolar) Recently seen: Clinic (sent from clinic for ariella and aggressive behavior towards staff.) Review of Systems Ten Systems: 10 systems reviewed and negative Constitutional: denies: Fever, Chills Ears: denies: Ear pain Nose: denies: Rhinorrhea / runny nose, Congestion Throat: denies: Sore throat Cardiac: denies: Chest pain / pressure Respiratory: denies: Cough GI: denies: Abdominal Pain, Nausea, Vomiting, Diarrhea Skin: denies: Rash Musculoskeletal: denies: Neck pain, Back pain Neurologic: denies: Focal weakness, Numbness, Headache PD PAST MEDICAL HISTORY - Past Medical History Past Medical History: Yes Cardiovascular: None Respiratory: None Endocrine/Autoimmune: None Psych: Depression, Anxiety, Schizophrenia Musculoskeletal: Fatigue, Chronic back pain - Past Surgical History 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 - Present Medications Home Medications: Ambulatory Orders Medication Instructions Recorded Confirmed Cyclobenzaprine [Flexeril] 10 mg PO TID PRN #20 tablet 11/26/16 12/09/16 Meloxicam [Mobic] 7.5 mg PO BID PRN #20 tablet 11/26/16 12/09/16 Escitalopram Oxalate [Lexapro] 2 tab PO DAILY 12/09/16 12/09/16 - Allergies Allergies/Adverse Reactions: Allergies Allergy/AdvReac Type Severity Reaction Status Date / Time Sulfa (Sulfonamide Allergy Unknown Verified 12/09/16 15:31 Antibiotics) - Social History Does the pt smoke?: No Smoking Status: Never smoker Does the pt drink ETOH?: Yes Does the pt have substance abuse?: No - Immunizations Immunizations are current?: Yes - POLST Patient has POLST: No PD ED PE NORMAL - Vitals Vital signs reviewed: Yes - General General: Alert and oriented X 3, No acute distress, Well developed/nourished - HEENT HEENT: PERRL, Moist mucous membranes - Neck Neck: Supple, no meningeal sign - Cardiac Cardiac: RRR, Strong equal pulses - Respiratory Respiratory: No respiratory distress, Clear bilaterally - Abdomen Abdomen: Soft, Non tender, Non distended - Derm Derm: Warm and dry - Extremities Extremities: No edema, No calf tenderness / cord - Neuro Neuro: Alert and oriented X 3 - Psych Psych: Other (pressured speech with flight of ideas and tangential thoughts. ) Results - Vitals Vitals: Vital Signs - 24 hr 12/09/16 12/09/16 15:26 18:49 Temperature 37.1 C 37.1 C Heart Rate 122 H 62 Respiratory 22 16 Rate Blood Pressure 164/111 H 115/81 H O2 Saturation 97 96 Oxygen O2 Source Room air - Labs Labs: Laboratory Tests 12/09/16 12/09/16 12/09/16 15:48 15:48 20:05 WBC 7.9 RBC 4.56 Hgb 14.1 Hct 41.4 MCV 90.6 MCH 30.9 MCHC 34.1 RDW 12.8 Plt Count 295 MPV 6.9 L Neut # 5.2 Lymph # 2.2 [place] # 0.5 Eos # 0.0 Baso # 0.0 Absolute Nucleated RBC 0.00 Nucleated RBC % 0.0 Sodium 133 L Potassium 3.6 Chloride 98 L Carbon Dioxide 20 L Anion Gap 15.0 H BUN 12 Creatinine 0.7 Estimated GFR (MDRD) 85 L Glucose 106 H Calcium 9.4 Total Bilirubin 1.4 H AST 45 H ALT 30 Alkaline Phosphatase 66 Total Protein 7.8 Albumin 4.9 Globulin 2.9 Albumin/Globulin Ratio 1.7 Lipase 20 L Urine Color YELLOW Urine Clarity CLEAR Urine pH 6.0 Ur Specific [place] <=1.005 Urine Protein NEGATIVE Urine Glucose (UA) NEGATIVE Urine Ketones TRACE Urine Occult Blood NEGATIVE Urine Nitrite NEGATIVE Urine Bilirubin NEGATIVE Urine Urobilinogen 0.2 (NORMAL) Ur Leukocyte Esterase NEGATIVE Ur Microscopic Review NOT INDICATED Urine Culture Comments NOT INDICATED Salicylates < 6.0 Urine Opiates Screen NEGATIVE Ur Oxycodone Screen NEGATIVE Urine Methadone Screen NEGATIVE Ur Propoxyphene Screen NEGATIVE Acetaminophen < 10 L Ur Barbiturates Screen NEGATIVE Ur Tricyclics Screen NEGATIVE Ur Phencyclidine Scrn NEGATIVE Ur Amphetamine Screen NEGATIVE U Methamphetamines Scrn NEGATIVE U Benzodiazepines Scrn NEGATIVE Urine Cocaine Screen NEGATIVE U Cannabinoids Screen NEGATIVE Ethyl Alcohol < 5.0 PD MEDICAL DECISION MAKING - ED course Complexity details: reviewed results, re-evaluated patient, considered differential, d/w patient ED course: Patient is a 61-year-old female who presents to the emergency department in an acutely manic state with psychosis. She had to be restrained for her safety, became aggressive and violent towards the nursing staff, therefore was given Zyprexa intramuscularly and this did calm her down significantly. Helped with her flight of ideas and she is much more coherent. [facility] Brian Lobato, evaluated the patient and does not feel that she needs to be involuntarily held at this time. Feels that she can go home, resume her medications and follow-up as an outpatient. Patient is very calm and cooperative after medication, no acute emergency medical condition at this time. Patient counseled regarding signs and symptoms for which I believe and urgent re-evaluation would be necessary. Patient with good understanding of and agreement to plan and is comfortable going home at this time This document was made in part using voice recognition software. While efforts are made to proofread this document, sound alike and grammatical errors may occur. Departure - Departure Disposition: 01 Home, Self Care Clinical Impression: Bipolar 1 disorder Condition: Stable Instructions: ED Manic Depression Follow-Up: your,doctor in 3 days [Other] Comments: Return if you worsen. Continue your medications at home and follow up as directed by the [facility] robert. Discharge Date/Time: 12/09/16 21:45
[2016-12-09 20:50] LABS: BILIRUBIN,URINE NEGATIVE (NEGATIVE)
[2016-12-09 20:53] LABS: UA CHARGE (STRIP ONLY) YES; UR CULTURE IF IND NOT INDICATED
== END 2016-12-09 21:45 | disposition home or self-care (01) ==
LOC: EDUNIT# → ED 15:22
DX: F31.9 Bipolar disorder, unspecified (principal)
CPT/HCPCS: 36415; 80053; 80306; 80307; 81003; 83690; 85025; 96372; 99284; 99285; A9270; G0480; 80320; 80329; 81001; 87086

== ENCOUNTER 2016-12-12 19:41 | Outpatient (CLI) | payer MEDICARE | END 2016-12-12 19:42 | disposition critical access hospital (66) | LOC: EMS 19:41 | PROVIDERS: ATTEND Surgery | DX: R46.89 Other symptoms and signs involving appearance and behavior (principal) | CPT/HCPCS: A0425; A0429 ==

== ENCOUNTER 2016-12-12 19:56 | Emergency (ER) | payer MEDICARE ==
--- NOTE | 2016-12-12 20:17 | ED Physician Documentation ---
PD HPI MHE - History obtained from History obtained from: Patient, EMS - History of Present Illness Primary symptom: Psychosis Timing - onset: Unknown Similar symptoms before: Diagnosis (schizophrenia) Recently seen: Emergency Dept (fourth [facility] ED visit this month including when she presented for similar c/o and was cleared for d/c after [facility]) - Stated complaint Stated Complaint: AMS - Chief complaint Chief Complaint: MHE - Additional information Additional information: patient is unable to provide helpful/meaningful/reliable HPI/ROS due to AMS, agitation, tangential thinking, flight of ideas, and poverty of content despite pressured speech requiring frequent interruptions in attempt to redirect. Per medic report, patient is homeless and was denied entry into a penitentiary tonight due to odd behavior and the staff's discomfort with letting her stay there when she was acting so bizarre. On presentation, patient frequently yelling, making odd noises (she says she is trying to make sounds like a cat), and speaking words that do not sound like real words to me. She says she is speaking [place]ian, but I do not recognize any of what she is saying as [place]ian. 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 - Social History Does the pt smoke?: No Smoking Status: Never smoker Does the pt drink ETOH?: Yes Does the pt have substance abuse?: No - Immunizations Immunizations are current?: Yes - POLST Patient has POLST: No - Present Medications Home Medications: Ambulatory Orders Medication Instructions Recorded Confirmed Cyclobenzaprine [Flexeril] 10 mg PO TID PRN #20 tablet 11/26/16 12/09/16 Meloxicam [Mobic] 7.5 mg PO BID PRN #20 tablet 11/26/16 12/09/16 Escitalopram Oxalate [Lexapro] 2 tab PO DAILY 12/09/16 12/09/16 - Allergies Allergies/Adverse Reactions: Allergies Allergy/AdvReac Type Severity Reaction Status Date / Time Sulfa (Sulfonamide Allergy Unknown Verified 12/09/16 15:31 Antibiotics) PD ED PE NORMAL - Vitals Vital signs reviewed: Yes - General General: Other (awake, alert, does not answer questions with answers (neither direct nor indirect answers), but instead is tangential and pressured with marked flight of ideas and poverty of content) - HEENT HEENT: PERRL, EOMI - Neck Neck: Supple, no meningeal sign - Cardiac Cardiac: RRR, No murmur - Respiratory Respiratory: No respiratory distress, Clear bilaterally - Abdomen Abdomen: Soft, Non tender - Derm Derm: Normal color, Warm and dry - Neuro Neuro: Other (awake, alert; unable to assess orientation due to not answering questions) PD ED PE EXPANDED - Psych Psych: Agitated, Pressured speech, Flight of ideas - Vitals Vitals: Vital Signs - 24 hr 12/12/16 12/13/16 19:57 07:35 Temperature 36.6 C Heart Rate 95 82 Respiratory 22 18 Rate Blood Pressure 162/86 H 158/84 H O2 Saturation 100 98 Oxygen O2 Source Room air - Labs Labs: Laboratory Tests 12/12/16 12/12/16 12/12/16 22:39 22:39 22:50 WBC 5.9 RBC 4.05 L Hgb 12.4 Hct 36.9 L MCV 91.1 MCH 30.6 MCHC 33.5 RDW 12.5 Plt Count 246 MPV 7.2 L Neut # 3.0 Lymph # 2.0 [place] # 0.8 Eos # 0.1 Baso # 0.0 Absolute Nucleated RBC 0.00 Nucleated RBC % 0.0 Sodium 131 L Potassium 3.5 Chloride 96 L Carbon Dioxide 23 Anion Gap 12.0 BUN 9 Creatinine 0.7 Estimated GFR (MDRD) 85 L Glucose 101 H Calcium 9.2 Urine Color YELLOW Urine Clarity CLEAR Urine pH 6.0 Ur Specific [place] <=1.005 Urine Protein NEGATIVE Urine Glucose (UA) NEGATIVE Urine Ketones NEGATIVE Urine Occult Blood TRACE-LYSE Urine Nitrite NEGATIVE Urine Bilirubin NEGATIVE Urine Urobilinogen 0.2 (NORMAL) Ur Leukocyte Esterase TRACE H Urine RBC 6-10 H Urine WBC 4-5 Ur Squamous Epith Cells MOD Squamous H Urine Bacteria Rare Ur Microscopic Review INDICATED Urine Culture Comments NOT INDICATED Urine HCG, Qual Salicylates < 6.0 Urine Opiates Screen NEGATIVE Ur Oxycodone Screen NEGATIVE Urine Methadone Screen NEGATIVE Ur Propoxyphene Screen NEGATIVE Acetaminophen < 10 L Ur Barbiturates Screen NEGATIVE Ur Tricyclics Screen NEGATIVE Ur Phencyclidine Scrn NEGATIVE Ur Amphetamine Screen NEGATIVE U Methamphetamines Scrn NEGATIVE U Benzodiazepines Scrn NEGATIVE Urine Cocaine Screen NEGATIVE U Cannabinoids Screen NEGATIVE Ethyl Alcohol < 5.0 12/12/16 22:50 WBC RBC Hgb Hct MCV MCH MCHC RDW Plt Count MPV Neut # Lymph # [place] # Eos # Baso # Absolute Nucleated RBC Nucleated RBC % Sodium Potassium Chloride Carbon Dioxide Anion Gap BUN Creatinine Estimated GFR (MDRD) Glucose Calcium Urine Color Urine Clarity Urine pH Ur Specific [place] <=1.005 Urine Protein Urine Glucose (UA) Urine Ketones Urine Occult Blood Urine Nitrite Urine Bilirubin Urine Urobilinogen Ur Leukocyte Esterase Urine RBC Urine WBC Ur Squamous Epith Cells Urine Bacteria Ur Microscopic Review Urine Culture Comments Urine HCG, Qual NEGATIVE Salicylates Urine Opiates Screen Ur Oxycodone Screen Urine Methadone Screen Ur Propoxyphene Screen Acetaminophen Ur Barbiturates Screen Ur Tricyclics Screen Ur Phencyclidine Scrn Ur Amphetamine Screen U Methamphetamines Scrn U Benzodiazepines Scrn Urine Cocaine Screen U Cannabinoids Screen Ethyl Alcohol PD MEDICAL DECISION MAKING - ED course Complexity details: reviewed old records, reviewed results, re-evaluated patient , considered differential, d/w patient - ED course ED course: I note that on her previous, recent ED visit (12/09), she had good response to 5mg IM zyprexa, and thus I ordered this medication (and this dose) IM. She fell asleep with this medication for several hours, but suddenly awoke approximately 5:15 AM and immediately resumed speaking in a very loud voice whether or not someone was in the room. She spoke continuously with marked flight of ideas and poverty of content; there was a preoccupation with Shawn. Repeated attempts to calm her down and get her to not speak so loudly were futile. Given 5mg PO zyprexa, as [facility] was contacted and is dispatching [facility] (and I do not want patient to be drowsy when they come to evaluate her). [facility] came to ED and evaluated patient in AM, working on placement at the end of my shift and thus I signed the case out to Dr. Gotti at 9 AM (Joseph Fong) Departure - Departure Disposition: 65 Psych Hosp/Unit DC/Xfer Clinical Impression: Bipolar affective disorder Qualifiers: Active/Remission status: currently active Current bipolar episode type: manic Current episode severity: severe Psychotic features: with psychotic features Qualified Code(s): F31.2 - Bipolar disorder, current episode manic severe with psychotic features Condition: Fair
[2016-12-12] MEDS ORDERED: OLANZapine 10 MG VIAL IM STA (20:32)
[2016-12-12] MEDS ORDERED: OLANZapine 10 MG VIAL IM ONE (20:44)
[2016-12-12] MEDS ORDERED: WATER FOR INJECTION,STERILE 10 ML ONE (20:44)
[2016-12-12 22:43] LABS: BASOPHILS % (AUTO) 0.4 %; EOSINOPHILS # (AUTO) 0.1 10^3/uL (0.0-0.7); EOSINOPHILS % (AUTO) 1.2 %; HCT - HEMATOCRIT 36.9 % (37.0-47.0); HGB - HEMOGLOBIN 12.4 g/dL (12.0-16.0); LYMPHOCYTES % (AUTO) 34.6 %; MEAN CORPUSCULAR HEMOGLOBIN 30.6 pg (27.0-31.0); MEAN CORPUSCULAR HGB CONC 33.5 g/dL (32.0-36.0); MEAN CORPUSCULAR VOLUME 91.1 fL (81.0-99.0); MEAN PLATELET VOLUME 7.2 fL (7.9-10.8); MONOCYTES # (AUTO) 0.8 10^3/uL (0.0-1.0); NEUTROPHILS % (AUTO) 50.8 %; RED BLOOD COUNT 4.05 10^6/uL (4.20-5.40); RED CELL DISTRIBUTION WIDTH 12.5 % (12.0-15.0); UNCORRECTED WHITE BLOOD COUNT 5.9 x10^3/uL; WHITE BLOOD COUNT 5.9 x10^3/uL (4.8-10.8)
[2016-12-12 22:57] LABS: BUN - BLOOD UREA NITROGEN 9 mg/dL (6-20); CALCIUM 9.2 mg/dL (8.5-10.3); CARBON DIOXIDE - CO2 23 mmol/L (21-32); CHLORIDE 96 mmol/L (101-111); CREATININE 0.7 mg/dL (0.4-1.0); GFR - MDRD 85 (>89); GLUCOSE 101 mg/dL (70-100); POTASSIUM 3.5 mmol/L (3.5-5.0); SALICYLATE < 6.0 mg/dL; SODIUM 131 mmol/L (135-145)
[2016-12-12 22:58] LABS: BILIRUBIN,URINE NEGATIVE (NEGATIVE)
[2016-12-12 22:58] LABS: ACETAMINOPHEN < 10 ug/mL (10-30)
[2016-12-12 23:00] LABS: UA w/ MICROSCOPIC CHARGE YES
[2016-12-12 23:03] LABS: HCG UR QUAL NEGATIVE
[2016-12-12 23:07] LABS: UR CULTURE IF IND NOT INDICATED
[2016-12-13] MEDS ORDERED: OLANZapine ODT 5 MG TABLET TL STA (05:29)
[2016-12-13] MEDS ORDERED: OLANZapine ODT 5 MG TABLET TL ONE ×3 (05:35→11:53)
[2016-12-13] MEDS ORDERED: OLANZapine 10 MG VIAL IM ONE (11:53)
[2016-12-13 12:02] VITALS: BP 148/80
== END 2016-12-13 11:55 ==
LOC: EDUNIT# → ED 19:56
DX: F31.2 Bipolar disorder, current episode manic severe with psychotic features (principal)
CPT/HCPCS: 36415; 80048; 80306; 80307; 81001; 81025; 85025; 96372; 99285; A9270; G0480; 80320; 80329; 81003; 87086; 99284

== ENCOUNTER 2016-12-13 11:58 | Outpatient (CLI) | payer MEDICARE | END 2016-12-13 11:59 | LOC: EMS 11:58 | PROVIDERS: ATTEND Surgery | DX: F29 Unspecified psychosis not due to a substance or known physiological condition (principal) | CPT/HCPCS: A0425; A0428 ==

== ENCOUNTER 2017-07-10 12:07 | Outpatient (CLI) | payer MEDICARE ==
--- NOTE | 2017-07-10 13:31 | XRAY Report ---
THREE VIEW LEFT HAND: 07/10/2017 CLINICAL INDICATION: Sprain, pain. FINDINGS: AP, lateral, oblique views of the left hand demonstrate no evidence of acute fracture or dislocation. Mild osteoarthritis is present. No foreign body is seen in the soft tissues. IMPRESSION: MILD OSTEOARTHRITIS. NO EVIDENCE OF ACUTE FRACTURE. TD: 07/10/2017 12:46
== END 2017-07-10 12:08 | disposition home or self-care (01) ==
LOC: DI 12:07 → EDUNIT# 12:07 → DI 12:08
PROVIDERS: ATTEND Family Medicine
DX: S63.613A Unspecified sprain of left middle finger, initial encounter (principal)

== ENCOUNTER 2017-07-11 03:55 | Emergency (ER) | payer MEDICARE ==
[2017-07-11 04:04] VITALS: BP 136/106
--- NOTE | 2017-07-11 04:16 | ED Physician Documentation ---
PD HPI UPPER EXT INJURY - Stated complaint Stated Complaint: LT HAND INJURY - Chief complaint Chief Complaint: Ext Problem - History obtained from History obtained from: Patient - History of Present Illness Location: Left, Finger Where injury occurred: Home Timing - onset: Yesterday Improved by: Rest, Immobilization Worsened by: Moving, Palpating Similar symptoms before: Has not had sx before Recently seen: Not recently seen - Additonal information Additional information: Patient is a 61 year old female with a history of bipolar, depression and schizophrenia who is presenting to the emergency department for finger pain. patient states that she was cooking yesterday and her finger just snapped. 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 - Present Medications Home Medications: Ambulatory Orders Medication Instructions Recorded Confirmed Cyclobenzaprine [Flexeril] 10 mg PO TID PRN #20 tablet 11/26/16 12/09/16 Meloxicam [Mobic] 7.5 mg PO BID PRN #20 tablet 11/26/16 12/09/16 Escitalopram Oxalate [Lexapro] 2 tab PO DAILY 12/09/16 12/09/16 - Allergies Allergies/Adverse Reactions: Allergies Allergy/AdvReac Type Severity Reaction Status Date / Time Sulfa (Sulfonamide Allergy Unknown Verified 07/11/17 04:04 Antibiotics) - Social History Does the pt smoke?: No Smoking Status: Never smoker Does the pt drink ETOH?: Yes Does the pt have substance abuse?: No - Immunizations Immunizations are current?: Yes - POLST Patient has POLST: No PD ED PE NORMAL - Vitals Vital signs reviewed: Yes - General General: Alert and oriented X 3 - HEENT HEENT: Atraumatic - Cardiac Cardiac: RRR - Respiratory Respiratory: No respiratory distress - Neuro Neuro: Alert and oriented X 3 PD ED PE EXPANDED - Extremities Extremities: Bruising, Left finger(s) (mild tenderness and swelling of mcp joint ), Motor intact, Sensory intact, Vascular intact, Tendon intact Results - Vitals Vitals: Vital Signs - 24 hr 07/11/17 04:01 Temperature 36.4 C L Heart Rate 98 Respiratory 18 Rate Blood Pressure 136/106 H O2 Saturation 98 Oxygen O2 Source Room air PD MEDICAL DECISION MAKING - ED course Complexity details: reviewed old records, reviewed results, re-evaluated patient , considered differential, d/w patient ED course: Patient was seen and examined at bedside. Patient's previous images were reviewed. patient had no fracture or dislocation. Patient was splinted for comfort and was stable for discharge with outpatient follow up. Departure - Departure Disposition: Home, Self Care Clinical Impression: Finger pain, left Condition: Good Instructions: ED Contusion Finger Follow-Up: Dimitry Ruiz DO [Primary Care Provider] - Comments: Your diagnostics were reviewed from earlier today. there is no acute fracture or dislocation. You can ice your wound and take motrin or tylenol for pain. Your finger will be placed in a splint for comfort. Your blood pressure was elevated today and you will need to follow up with your doctor for repeat measurements, further evaluation and care.
== END 2017-07-11 04:42 | disposition home or self-care (01) ==
LOC: ED 03:55 → EDUNIT# 03:55 → ED 04:42
DX: M79.645 Pain in left finger(s) (principal)
CPT/HCPCS: 99282

== ENCOUNTER 2017-07-16 21:30 | Outpatient (CLI) | payer MEDICARE | END 2017-07-16 21:31 | disposition critical access hospital (66) | LOC: EMS 21:30 | PROVIDERS: ATTEND Surgery | DX: R46.89 Other symptoms and signs involving appearance and behavior (principal); S09.90XA Unspecified injury of head, initial encounter; X79.XXXA Intentional self-harm by blunt object, initial encounter | CPT/HCPCS: A0425; A0429 ==

== ENCOUNTER 2017-07-16 21:39 | Emergency (ER) | payer MEDICARE ==
[2017-07-16] MEDS ORDERED: OLANZapine 10 MG VIAL IM STA (21:48)
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
[2017-07-16] MEDS ORDERED: OLANZapine 10 MG VIAL IM ONE (21:59)
[2017-07-16] MEDS ORDERED: WATER FOR INJECTION,STERILE 10 ML ONE (22:00)
[2017-07-16] MEDS ORDERED: KETAMINE 500 MG/10 ML VIAL IM STA (22:25)
[2017-07-16] MEDS ORDERED: HALOPERIDOL 5 MG/ML VIAL IM STA (22:31)
[2017-07-16] MEDS ORDERED: LORazepam 2 MG/ML VIAL IM STA (22:32)
[2017-07-16 23:20] LABS: MUDS CUTOFF CONCENTRATIONS CUTOFF CONC BELOW:
[2017-07-16 23:25] LABS: BILIRUBIN,URINE NEGATIVE (NEGATIVE); GLUCOSE, URINE (UA) NEGATIVE (NEGATIVE); KETONES,URINE (UA) NEGATIVE (NEGATIVE); LEUKOCYTE ESTERASE, URINE SMALL (NEGATIVE); NITRITE,URINE POSITIVE (NEGATIVE); OCCULT BLOOD,URINE NEGATIVE (NEGATIVE); PROTEIN,URINE NEGATIVE (NEGATIVE); UROBILINOGEN,URINE 0.2 (NORMAL) E.U./dL (NORMAL)
[2017-07-16 23:27] LABS: CLARITY,URINE HAZY (CLEAR)
[2017-07-16 23:35] LABS: AMPHETAMINE SCREEN,URINE NEGATIVE (NEGATIVE); BACTERIA,URINE Moderate /HPF (None Seen); BENZODIAZEPINES SCREEN, URINE NEGATIVE (NEGATIVE); COCAINE SCREEN URINE NEGATIVE (NEGATIVE); METHADONE SCREEN, URINE NEGATIVE (NEGATIVE); METHAMPHETAMINES SCREEN, URINE NEGATIVE (NEGATIVE); OPIATE SCREEN, URINE NEGATIVE (NEGATIVE); OXYCODONE SCREEN, URINE NEGATIVE (NEGATIVE); PROPOXYPHENE SCREEN, URINE NEGATIVE (NEGATIVE); RBC,URINE None Seen /HPF (0-5); SQUAMOUS EPITHELIAL CELL,UR NONE SEEN (<= Few); TRICYCLIC ANTIDEPRESSANT,URINE NEGATIVE (NEGATIVE); WBC CLUMPS,URINE PRESENT
[2017-07-16 23:41] LABS: BASOPHILS # (AUTO) 0.1 10^3/uL (0.0-0.1); BASOPHILS % (AUTO) 0.5 %; EOSINOPHILS # (AUTO) 0.1 10^3/uL (0.0-0.7); EOSINOPHILS % (AUTO) 0.8 %; HGB - HEMOGLOBIN 12.9 g/dL (12.0-16.0); LYMPHOCYTES # (AUTO) 2.3 10^3/uL (1.5-3.5); LYMPHOCYTES % (AUTO) 19.3 %; MEAN CORPUSCULAR HEMOGLOBIN 30.3 pg (27.0-31.0); MEAN CORPUSCULAR HGB CONC 33.3 g/dL (32.0-36.0); MEAN PLATELET VOLUME 7.2 fL (7.9-10.8); MONOCYTES # (AUTO) 0.9 10^3/uL (0.0-1.0); MONOCYTES % (AUTO) 7.9 %; NEUTROPHILS # (AUTO) 8.4 10^3/uL (1.5-6.6); NEUTROPHILS % (AUTO) 71.5 %; PLT - PLATELET COUNT 318 10^3/uL (130-450); RED BLOOD COUNT 4.24 10^6/uL (4.20-5.40); RED CELL DISTRIBUTION WIDTH 13.7 % (12.0-15.0); WHITE BLOOD COUNT 11.8 x10^3/uL (4.8-10.8)
[2017-07-16 23:49] LABS: BUN - BLOOD UREA NITROGEN 20 mg/dL (6-20); CALCIUM 9.1 mg/dL (8.5-10.3); CARBON DIOXIDE - CO2 22 mmol/L (21-32); CHLORIDE 106 mmol/L (101-111); CREATININE 0.8 mg/dL (0.4-1.0); GFR - MDRD 73 (>89); GLUCOSE 98 mg/dL (70-100); SALICYLATE < 6.0 mg/dL; SODIUM 138 mmol/L (135-145)
[2017-07-16 23:52] LABS: ACETAMINOPHEN < 10 ug/mL (10-30)
--- NOTE | 2017-07-17 01:48 | CT Preliminary Report ---
Exam: CT HEAD W/O IMPRESSION: Negative CT head without contrast. [facility] SITE ID: [id number]
--- NOTE | 2017-07-17 01:48 | CT Report ---
EXAM: CT HEAD EXAM DATE: 07/17/2017 01:36 AM. CLINICAL HISTORY: Head injury. COMPARISON: None. TECHNIQUE: Multiaxial CT images were obtained from the foramen magnum to the vertex. Reformats: Coron al. IV contrast: None. In accordance with CT protocol optimization, one or more of the following dose reduction techniques w ere utilized for this exam: automated exposure control, adjustment of mA and/or KV based on patient s ize, or use of iterative reconstructive technique. FINDINGS: Parenchyma: No intraparenchymal hemorrhage. No evidence of mass, midline shift, or CT findings of inf arction. Diez-white differentiation is distinct. Extraaxial Spaces: Normal for age. No subdural or epidural collections identified. Ventricles: Normal in size and position. Sinuses and Orbits: Imaged paranasal sinuses, orbits, and mastoids show no significant abnormality. Bones: No evidence of fracture or calvarial defect. Other: None. IMPRESSION: Negative CT head without contrast. [facility] Referring Provider Line: [phone] SITE ID: [id number]
--- NOTE | 2017-07-17 02:08 | CT Preliminary Report ---
Exam: CT FACIAL BONES W/O IMPRESSION: 1. No evidence of a facial bone fracture. [facility] SITE ID: [id number]
--- NOTE | 2017-07-17 02:08 | CT Report ---
EXAM: CT MAXILLOFACIAL WITHOUT CONTRAST EXAM DATE: 07/17/2017 01:35 AM. CLINICAL HISTORY: Facial injury. COMPARISONS: None. TECHNIQUE: Thin-section axial images were acquired of the face without contrast. Post-processing: Cor onal and sagittal reformats. Other: None. In accordance with CT protocol optimization, one or more of the following dose reduction techniques w ere utilized for this exam: automated exposure control, adjustment of mA and/or KV based on patient s ize, or use of iterative reconstructive technique. FINDINGS: Soft Tissue: There is soft tissue swelling involving the chin. This appears to be greater to the left of midline. Orbits: Symmetric and unremarkable. Bones: No fracture or bone lesion. Temporomandibular Joints: The temporomandibular joints are symmetric and normally located. Sinuses: There is mild mucosal thickening throughout the maxillary sinuses and ethmoid air cells bila terally. No fluid levels. Other: None. IMPRESSION: 1. No evidence of a facial bone fracture. [facility] Referring Provider Line: [phone] SITE ID: [id number]
[2017-07-17] MEDS ORDERED: cefTRIAXone 1 GM in SODIUM CHLORIDE 0.9% MINIBAG 100 ML IV STA (03:15)
[2017-07-17] MEDS ORDERED: LORazepam 2 MG/ML VIAL IVP STA ×2 (03:25→11:55)
[2017-07-17 12:47] VITALS: BP 120/82
== END 2017-07-17 12:49 ==
LOC: EDUNIT# → ED 21:39
DX: N30.00 Acute cystitis without hematuria (principal); F20.9 Schizophrenia, unspecified; S61.412A Laceration without foreign body of left hand, initial encounter; X58.XXXA Exposure to other specified factors, initial encounter; S09.93XA Unspecified injury of face, initial encounter; X79.XXXA Intentional self-harm by blunt object, initial encounter; F41.8 Other specified anxiety disorders; Z78.1 Physical restraint status
CPT/HCPCS: 51701; 70450; 70486; 80048; 80306; 80307; 81001; 85025; 87077; 87086; 87181; 93005; 96365; 96372; 96375; 96376; 99284; 99285; G0480; J2060; 80320; 80329; 81003

== ENCOUNTER 2017-08-26 11:34 | Outpatient (CLI) | payer MEDICARE | END 2017-08-26 11:35 | disposition critical access hospital (66) | LOC: EMS 11:34 | PROVIDERS: ATTEND Surgery | DX: R46.89 Other symptoms and signs involving appearance and behavior (principal); R41.82 Altered mental status, unspecified | CPT/HCPCS: A0425; A0429 ==

== ENCOUNTER 2017-08-26 11:45 | Emergency (ER) | payer MEDICARE ==
[2017-08-26 12:40] LABS: BASOPHILS % (AUTO) 0.4 %; EOSINOPHILS # (AUTO) 0.1 10^3/uL (0.0-0.7); EOSINOPHILS % (AUTO) 0.8 %; HGB - HEMOGLOBIN 12.7 g/dL (12.0-16.0); LYMPHOCYTES # (AUTO) 1.2 10^3/uL (1.5-3.5); LYMPHOCYTES % (AUTO) 16.5 %; MEAN CORPUSCULAR HEMOGLOBIN 31.2 pg (27.0-31.0); MEAN CORPUSCULAR HGB CONC 33.8 g/dL (32.0-36.0); MEAN CORPUSCULAR VOLUME 92.2 fL (81.0-99.0); MEAN PLATELET VOLUME 7.2 fL (7.9-10.8); MONOCYTES # (AUTO) 0.6 10^3/uL (0.0-1.0); MONOCYTES % (AUTO) 7.8 %; NEUTROPHILS # (AUTO) 5.5 10^3/uL (1.5-6.6); NEUTROPHILS % (AUTO) 74.5 %; PLT - PLATELET COUNT 313 10^3/uL (130-450); RED BLOOD COUNT 4.06 10^6/uL (4.20-5.40); RED CELL DISTRIBUTION WIDTH 14.1 % (12.0-15.0); WHITE BLOOD COUNT 7.3 x10^3/uL (4.8-10.8)
[2017-08-26 12:57] LABS: ALBUMIN/GLOBULIN RATIO 1.4 (1.0-2.2); ALKALINE PHOSPHATASE 67 IU/L (42-121); ALT ALANINE AMINOTRANSFERASE 20 IU/L (10-60); AST ASPARTATE AMINOTRANSFERASE 23 IU/L (10-42); BILIRUBIN,TOTAL 1.1 mg/dL (0.2-1.0); BUN - BLOOD UREA NITROGEN 14 mg/dL (6-20); CALCIUM 8.9 mg/dL (8.5-10.3); CARBON DIOXIDE - CO2 24 mmol/L (21-32); CHLORIDE 101 mmol/L (101-111); CREATININE 0.6 mg/dL (0.4-1.0); GFR - MDRD 102 (>89); GLUCOSE 92 mg/dL (70-100); LIPASE 28 U/L (22-51); SALICYLATE < 6.0 mg/dL; SODIUM 134 mmol/L (135-145); TOTAL PROTEIN 6.9 g/dL (6.7-8.2)
[2017-08-26 13:01] LABS: ACETAMINOPHEN < 10 ug/mL (10-30)
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
[2017-08-26 15:48] LABS: MUDS CUTOFF CONCENTRATIONS CUTOFF CONC BELOW:
[2017-08-26 16:04] LABS: AMPHETAMINE SCREEN,URINE NEGATIVE (NEGATIVE); BENZODIAZEPINES SCREEN, URINE NEGATIVE (NEGATIVE); COCAINE SCREEN URINE NEGATIVE (NEGATIVE); METHADONE SCREEN, URINE NEGATIVE (NEGATIVE); METHAMPHETAMINES SCREEN, URINE NEGATIVE (NEGATIVE); OPIATE SCREEN, URINE NEGATIVE (NEGATIVE); OXYCODONE SCREEN, URINE NEGATIVE (NEGATIVE); PROPOXYPHENE SCREEN, URINE NEGATIVE (NEGATIVE); TRICYCLIC ANTIDEPRESSANT,URINE NEGATIVE (NEGATIVE)
[2017-08-26 16:23] LABS: BILIRUBIN,URINE NEGATIVE (NEGATIVE); GLUCOSE, URINE (UA) NEGATIVE (NEGATIVE); KETONES,URINE (UA) 15 mg/dL (NEGATIVE); LEUKOCYTE ESTERASE, URINE LARGE (NEGATIVE); NITRITE,URINE NEGATIVE (NEGATIVE); OCCULT BLOOD,URINE SMALL (NEGATIVE); PH,URINE 5.5 PH (5.0-7.5); PROTEIN,URINE NEGATIVE (NEGATIVE); UROBILINOGEN,URINE 0.2 (NORMAL) E.U./dL (NORMAL)
[2017-08-26 16:31] LABS: BACTERIA,URINE Many /HPF (None Seen); CLARITY,URINE HAZY (CLEAR); SQUAMOUS EPITHELIAL CELL,UR FEW Squamous (<= Few)
[2017-08-26] MEDS ORDERED: OLANZapine 10 MG VIAL IM STA (21:49)
[2017-08-26] MEDS ORDERED: cefTRIAXone 1 GM VIAL IM STA (21:49)
[2017-08-26] MEDS ORDERED: LIDOCAINE 1% 2 ML VIAL SUBQ ONE (21:49)
--- NOTE | 2017-08-26 22:33 | ED Physician Documentation ---
ED Addendum - Addendum Addendum: 08/26/17 22:32 Found to have a UTI vs contaminated UA. Given rocephin IM for this.
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
[2017-08-27 02:32] LABS: HCG,QUALITATIVE BLOOD NEGATIVE
[2017-08-27] MEDS ORDERED: OLANZapine 10 MG VIAL IM ONE (05:24)
--- NOTE | 2017-08-27 08:27 | ED Physician Documentation ---
ED Addendum - Addendum Addendum: 08/27/17 08:25 Report from over night providers the patient did have some restlessness and increased activity during the night and did receive another dose of Zyprexa. She was calmer and slept the rest of that. Social work correction D [facility] was back again this morning and found placement for her involuntary hold. Doc to doc report was given to the psychiatrist Dr. Villegas. The patient will be transferred by [facility] ambulance to [facility].
[2017-08-27 10:34] VITALS: BP 120/72
== END 2017-08-27 10:25 ==
LOC: ED 11:45
DX: R41.82 Altered mental status, unspecified (principal); R82.90 Unspecified abnormal findings in urine; F20.9 Schizophrenia, unspecified
CPT/HCPCS: 36415; 80053; 80306; 80307; 81001; 83690; 84443; 84703; 85025; 87086; 96372; 99284; 99285; G0480; 80320; 80329; 81003; 81025

== ENCOUNTER 2018-02-03 09:01 | Outpatient (CLI) | payer MEDICARE ==
[2018-02-03 10:07] LABS: BASOPHILS % (AUTO) 0.4 %; EOSINOPHILS # (AUTO) 0.1 10^3/uL (0.0-0.7); EOSINOPHILS % (AUTO) 1.5 %; HGB - HEMOGLOBIN 13.5 g/dL (12.0-16.0); LYMPHOCYTES # (AUTO) 1.7 10^3/uL (1.5-3.5); LYMPHOCYTES % (AUTO) 32.8 %; MEAN CORPUSCULAR HEMOGLOBIN 31.5 pg (27.0-31.0); MEAN CORPUSCULAR HGB CONC 34.4 g/dL (32.0-36.0); MEAN CORPUSCULAR VOLUME 91.5 fL (81.0-99.0); MEAN PLATELET VOLUME 6.8 fL (7.9-10.8); MONOCYTES # (AUTO) 0.4 10^3/uL (0.0-1.0); MONOCYTES % (AUTO) 8.3 %; PLT - PLATELET COUNT 286 10^3/uL (130-450); RED BLOOD COUNT 4.28 10^6/uL (4.20-5.40); RED CELL DISTRIBUTION WIDTH 12.4 % (12.0-15.0); WHITE BLOOD COUNT 5.3 x10^3/uL (4.8-10.8)
[2018-02-03 10:18] LABS: ALBUMIN/GLOBULIN RATIO 1.5 (1.0-2.2); BILIRUBIN,TOTAL 0.6 mg/dL (0.2-1.0); CALCIUM 9.1 mg/dL (8.5-10.3); CREATININE 0.7 mg/dL (0.4-1.0); TOTAL PROTEIN 6.6 g/dL (6.7-8.2)
== END 2018-02-03 09:02 | disposition home or self-care (01) ==
LOC: LAB 09:01
PROVIDERS: ATTEND Family Medicine
DX: K92.1 Melena (principal)
CPT/HCPCS: 36415; 80053; 82274; 85025

== ENCOUNTER 2018-02-08 14:54 | Emergency (ER) | payer MEDICARE ==
[2018-02-08 16:08] LABS: BASOPHILS % (AUTO) 0.6 %; EOSINOPHILS # (AUTO) 0.1 10^3/uL (0.0-0.7); EOSINOPHILS % (AUTO) 0.9 %; LYMPHOCYTES # (AUTO) 1.5 10^3/uL (1.5-3.5); LYMPHOCYTES % (AUTO) 27.1 %; MEAN CORPUSCULAR HEMOGLOBIN 31.1 pg (27.0-31.0); MEAN CORPUSCULAR HGB CONC 33.9 g/dL (32.0-36.0); MEAN CORPUSCULAR VOLUME 91.7 fL (81.0-99.0); MEAN PLATELET VOLUME 7.2 fL (7.9-10.8); MONOCYTES # (AUTO) 0.3 10^3/uL (0.0-1.0); MONOCYTES % (AUTO) 5.6 %; NEUTROPHILS # (AUTO) 3.7 10^3/uL (1.5-6.6); NEUTROPHILS % (AUTO) 65.8 %; PLT - PLATELET COUNT 247 10^3/uL (130-450); RED BLOOD COUNT 4.17 10^6/uL (4.20-5.40); RED CELL DISTRIBUTION WIDTH 12.7 % (12.0-15.0); WHITE BLOOD COUNT 5.6 x10^3/uL (4.8-10.8)
[2018-02-08 16:18] LABS: ALBUMIN/GLOBULIN RATIO 1.5 (1.0-2.2); BILIRUBIN,TOTAL 0.3 mg/dL (0.2-1.0); CALCIUM 9.1 mg/dL (8.5-10.3); CREATININE 0.7 mg/dL (0.4-1.0); MAGNESIUM 2.1 mg/dL (1.7-2.8); TOTAL PROTEIN 6.6 g/dL (6.7-8.2)
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
[2018-02-08 18:09] VITALS: BP 123/97
--- NOTE | 2018-03-13 10:26 | ED Physician Documentation ---
ED Addendum - Addendum Addendum: 03/13/18 10:25 ROS: all negative except for blood in the stool and incontinence
== END 2018-02-08 18:09 | disposition home or self-care (01) ==
LOC: ED 14:54
DX: K62.5 Hemorrhage of anus and rectum (principal); I10 Essential (primary) hypertension
CPT/HCPCS: 36415; 80053; 83690; 83735; 85025; 99283

== ENCOUNTER 2018-02-09 21:30 | Outpatient (CLI) | payer MEDICARE | END 2018-02-09 21:31 | disposition critical access hospital (66) | LOC: EMS 21:30 | PROVIDERS: ATTEND Surgery | DX: T42.4X2A Poisoning by benzodiazepines, intentional self-harm, initial encounter (principal); R26.81 Unsteadiness on feet; R47.81 Slurred speech | CPT/HCPCS: A0425; A0427 ==

== ENCOUNTER 2018-02-09 21:48 | Emergency (ER) | payer MEDICARE ==
[2018-02-09] MEDS: SODIUM CHLORIDE 0.9% 1,000 ML IV ONE (22:05)
[2018-02-09 22:30] LABS: BASOPHILS % (AUTO) 0.6 %; EOSINOPHILS # (AUTO) 0.1 10^3/uL (0.0-0.7); EOSINOPHILS % (AUTO) 1.7 %; HGB - HEMOGLOBIN 12.2 g/dL (12.0-16.0); LYMPHOCYTES # (AUTO) 1.8 10^3/uL (1.5-3.5); LYMPHOCYTES % (AUTO) 38.5 %; MEAN CORPUSCULAR HEMOGLOBIN 31.5 pg (27.0-31.0); MEAN CORPUSCULAR HGB CONC 34.6 g/dL (32.0-36.0); MEAN CORPUSCULAR VOLUME 91.1 fL (81.0-99.0); MEAN PLATELET VOLUME 6.7 fL (7.9-10.8); MONOCYTES # (AUTO) 0.4 10^3/uL (0.0-1.0); MONOCYTES % (AUTO) 9.2 %; NEUTROPHILS # (AUTO) 2.3 10^3/uL (1.5-6.6); PLT - PLATELET COUNT 231 10^3/uL (130-450); RED BLOOD COUNT 3.88 10^6/uL (4.20-5.40); RED CELL DISTRIBUTION WIDTH 12.8 % (12.0-15.0); WHITE BLOOD COUNT 4.7 x10^3/uL (4.8-10.8)
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
[2018-02-09 22:56] LABS: ALBUMIN 3.8 g/dL (3.2-5.5); ALBUMIN/GLOBULIN RATIO 1.7 (1.0-2.2); ALKALINE PHOSPHATASE 48 IU/L (42-121); ALT ALANINE AMINOTRANSFERASE 21 IU/L (10-60); AST ASPARTATE AMINOTRANSFERASE 22 IU/L (10-42); BILIRUBIN,TOTAL 0.4 mg/dL (0.2-1.0); BUN - BLOOD UREA NITROGEN < 5 mg/dL (6-20); CALCIUM 8.2 mg/dL (8.5-10.3); CARBON DIOXIDE - CO2 21 mmol/L (21-32); CHLORIDE 107 mmol/L (101-111); CREATININE 0.5 mg/dL (0.4-1.0); GFR - MDRD 125 (>89); GLUCOSE 90 mg/dL (70-100); LIPASE 24 U/L (22-51); SODIUM 138 mmol/L (135-145)
[2018-02-09] MEDS: LIDOCAINE 1% 2 ML VIAL SUBQ STA (23:30)
[2018-02-10] MEDS: POTASSIUM CHLOR 10 MEQ/100 ML 10 MEQ/100 ML BAG IV ONE (00:28)
[2018-02-10 00:29] LABS: BILIRUBIN,URINE NEGATIVE (NEGATIVE); GLUCOSE, URINE (UA) NEGATIVE (NEGATIVE); KETONES,URINE (UA) NEGATIVE (NEGATIVE); LEUKOCYTE ESTERASE, URINE TRACE (NEGATIVE); NITRITE,URINE NEGATIVE (NEGATIVE); OCCULT BLOOD,URINE TRACE-LYSE (NEGATIVE); PROTEIN,URINE NEGATIVE (NEGATIVE); UROBILINOGEN,URINE 0.2 (NORMAL) E.U./dL (NORMAL)
[2018-02-10 00:30] LABS: BACTERIA,URINE None Seen /HPF (None Seen); CLARITY,URINE CLEAR (CLEAR); RBC,URINE 0-5 /HPF (0-5); SQUAMOUS EPITHELIAL CELL,UR FEW Squamous (<= Few)
[2018-02-10] MEDS: BACITRACIN OINT TOP STA (01:07)
--- NOTE | 2018-02-10 01:08 | CT Report ---
Reason: fall, head injury Procedure Date: 02/10/2018 Accession Number: [id number] / [id number] Procedure: CT - Head W/O CPT Code: FULL RESULT: EXAM: CT HEAD EXAM DATE: 02/10/2018 12:32 AM. CLINICAL HISTORY: Head pain, fall. COMPARISON: HEAD W/O 07/17/2017 1:15 AM. TECHNIQUE: Multiaxial CT images were obtained from the foramen magnum to the vertex. Reformats: Sagittal and coronal. IV contrast: None. In accordance with CT protocol optimization, one or more of the following dose reduction techniques were utilized for this exam: automated exposure control, adjustment of mA and/or KV based on patient size, or use of iterative reconstructive technique. FINDINGS: Parenchyma: No intraparenchymal hemorrhage. No evidence of mass, midline shift, or CT findings of infarction. Diez-white differentiation is distinct. Extraaxial Spaces: Normal for age. No subdural or epidural collections identified. Ventricles: Normal in size and position. Sinuses and Orbits: Imaged paranasal sinuses, orbits, and mastoids show no significant abnormality. Bones: No evidence of fracture or calvarial defect. IMPRESSION: Normal head CT. RADIA
[2018-02-10 01:53] LABS: MUDS CUTOFF CONCENTRATIONS CUTOFF CONC BELOW:
[2018-02-10 02:03] LABS: HCG UR QUAL NEGATIVE
[2018-02-10 02:07] LABS: AMPHETAMINE SCREEN,URINE NEGATIVE (NEGATIVE); BENZODIAZEPINES SCREEN, URINE POSITIVE (NEGATIVE); COCAINE SCREEN URINE NEGATIVE (NEGATIVE); METHADONE SCREEN, URINE NEGATIVE (NEGATIVE); METHAMPHETAMINES SCREEN, URINE NEGATIVE (NEGATIVE); OPIATE SCREEN, URINE NEGATIVE (NEGATIVE); OXYCODONE SCREEN, URINE NEGATIVE (NEGATIVE); PROPOXYPHENE SCREEN, URINE NEGATIVE (NEGATIVE); TRICYCLIC ANTIDEPRESSANT,URINE NEGATIVE (NEGATIVE)
[2018-02-10 02:34] VITALS: BP 99/73
== END 2018-02-10 02:40 | disposition short-term general hospital (02) ==
LOC: EDUNIT# → ED 21:48
DX: Z04.41 Encounter for examination and observation following alleged adult rape (principal); S01.81XA Laceration without foreign body of other part of head, initial encounter; W06.XXXA Fall from bed, initial encounter; Y92.538 Other ambulatory health services establishments as the place of occurrence of the external cause
CPT/HCPCS: 12013; 36415; 70450; 80053; 81001; 81025; 83690; 85025; 87086; 96361; 96365; 96366; 99284; 99285; A9270; 80306; 80320; 81003

== ENCOUNTER 2018-02-10 02:40 | Outpatient (CLI) | payer MEDICARE | END 2018-02-10 02:41 | disposition short-term general hospital (02) | LOC: EMS 02:40 | PROVIDERS: ATTEND Surgery | DX: T42.4X2A Poisoning by benzodiazepines, intentional self-harm, initial encounter (principal) | CPT/HCPCS: A0425; A0426 ==

== ENCOUNTER 2018-02-12 15:11 | Emergency (ER) | payer MEDICARE ==
[2018-02-12 15:57] LABS: MUDS CUTOFF CONCENTRATIONS CUTOFF CONC BELOW:
[2018-02-12 15:59] LABS: BILIRUBIN,URINE NEGATIVE (NEGATIVE); GLUCOSE, URINE (UA) NEGATIVE (NEGATIVE); KETONES,URINE (UA) NEGATIVE (NEGATIVE); LEUKOCYTE ESTERASE, URINE NEGATIVE (NEGATIVE); NITRITE,URINE NEGATIVE (NEGATIVE); OCCULT BLOOD,URINE NEGATIVE (NEGATIVE); PH,URINE 6.5 PH (5.0-7.5); PROTEIN,URINE NEGATIVE (NEGATIVE); UROBILINOGEN,URINE 0.2 (NORMAL) E.U./dL (NORMAL)
[2018-02-12 16:01] LABS: CLARITY,URINE CLEAR (CLEAR)
[2018-02-12 16:14] LABS: AMPHETAMINE SCREEN,URINE NEGATIVE (NEGATIVE); BENZODIAZEPINES SCREEN, URINE POSITIVE (NEGATIVE); COCAINE SCREEN URINE NEGATIVE (NEGATIVE); METHADONE SCREEN, URINE NEGATIVE (NEGATIVE); METHAMPHETAMINES SCREEN, URINE NEGATIVE (NEGATIVE); OPIATE SCREEN, URINE NEGATIVE (NEGATIVE); OXYCODONE SCREEN, URINE NEGATIVE (NEGATIVE); PROPOXYPHENE SCREEN, URINE NEGATIVE (NEGATIVE); TRICYCLIC ANTIDEPRESSANT,URINE NEGATIVE (NEGATIVE)
[2018-02-12] MEDS ORDERED: IBUPROFEN 800 MG TABLET PO STA (16:47)
--- NOTE | 2018-02-12 16:52 | ED Physician Documentation ---
History of Present Illness - Stated complaint Stated Complaint: L SIDED PX - Chief complaint Chief Complaint: General - History obtained from History obtained from: Patient - History of Present Illness Timing: Today Pain level max: 10 Pain level now: 10 - Additonal information Additional information: Patient is a 62-year-old female who presents to the emergency department stating that it hurts to move her left arm and left leg. States she fell the other day injuring her head, was seen at [facility] at that time. She states no new injury. Has not taken anything for the pain. She is able to walk without any difficulty. Drove herself here. She states that her doctor was concerned that she could be having a stroke. 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 : Chronic bladder infection, Frequency HEENT: Chronic hearing loss Psych: Depression, Anxiety, Schizophrenia Musculoskeletal: Fatigue, Chronic back pain, Other Derm: None - Past Surgical History 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 - Present Medications Home Medications: Ambulatory Orders Medication Instructions Recorded Confirmed Pilocarpine HCl 1 tab PO QID 02/08/18 ALPRAZolam [Alprazolam] 1 - 2 tab PO TID 02/09/18 02/09/18 Buspirone HCl 1 tab PO BID 02/09/18 02/09/18 Lamotrigine [Lamotrigine ER] 200 mg PO DAILY 02/09/18 02/09/18 Trazodone HCl 150 mg PO QPM 02/09/18 02/09/18 - Allergies Allergies/Adverse Reactions: Allergies Allergy/AdvReac Type Severity Reaction Status Date / Time Sulfa (Sulfonamide Allergy Unknown Verified 02/09/18 22:42 Antibiotics) - Social History Does the pt smoke?: No Smoking Status: Never smoker Does the pt drink ETOH?: No Does the pt have substance abuse?: No - Immunizations Immunizations are current?: Yes - POLST Patient has POLST: No PD ED PE NORMAL - Vitals Vital signs reviewed: Yes - General General: Alert and oriented X 3, No acute distress - HEENT HEENT: Moist mucous membranes - Neck Neck: Supple, no meningeal sign, No bony TTP - Cardiac Cardiac: RRR - Respiratory Respiratory: No respiratory distress, Clear bilaterally - Abdomen Abdomen: Soft, Non tender, Non distended - Back Back: No spinal TTP - Derm Derm: Warm and dry, No rash - Extremities Extremities: No edema, No calf tenderness / cord, Other (s Full range of motion of the left upper extremity, all joints without pain. She is using the arms Freely to undress herself in the emergency department. Also moving her legs very well. She does have tenderness over the left proximal femur. No deformity. No ecchymosis. Skin is normal throughout. Neurovascularly intact) - Neuro Neuro: Alert and oriented X 3, human resources temp 2-12 intact, No motor deficit, No sensory deficit, Normal speech Eye Opening: Spontaneous Motor: Obeys Commands Verbal: Oriented GCS Score: 15 Results - Vitals Vitals: Vital Signs - 24 hr 02/12/18 02/12/18 15:18 18:45 Temperature 36.3 C L 36.4 C L Heart Rate 82 74 Respiratory 18 12 Rate Blood Pressure 96/72 104/67 O2 Saturation 100 100 Oxygen O2 Source Room air - Labs Labs: Laboratory Tests 02/12/18 02/12/18 02/12/18 15:30 17:05 17:05 WBC 4.9 RBC 4.09 L Hgb 12.8 Hct 37.8 MCV 92.3 MCH 31.2 H MCHC 33.8 RDW 13.6 Plt Count 229 MPV 7.2 L Neut # (Auto) 2.7 Lymph # (Auto) 1.8 Cannon # (Auto) 0.3 Eos # (Auto) 0.1 Baso # (Auto) 0.0 Absolute Nucleated RBC 0.00 Nucleated RBC % 0.0 VBG pH Ionized Calcium Sodium 141 Potassium 3.8 Chloride 107 Carbon Dioxide 25 Anion Gap 9.0 BUN 9 Creatinine 0.5 Estimated GFR (MDRD) 125 Glucose 79 Calcium 9.2 Total Bilirubin 0.3 AST 40 ALT 23 Alkaline Phosphatase 48 Total Protein 7.0 Albumin 4.1 Globulin 2.9 Albumin/Globulin Ratio 1.4 Lipase 32 Urine Color YELLOW Urine Clarity CLEAR Urine pH 6.5 Ur Specific [place] <=1.005 Urine Protein NEGATIVE Urine Glucose (UA) NEGATIVE Urine Ketones NEGATIVE Urine Occult Blood NEGATIVE Urine Nitrite NEGATIVE Urine Bilirubin NEGATIVE Urine Urobilinogen 0.2 (NORMAL) Ur Leukocyte Esterase NEGATIVE Ur Microscopic Review NOT INDICATED Urine Culture Comments NOT INDICATED Urine Opiates Screen NEGATIVE Ur Oxycodone Screen NEGATIVE Urine Methadone Screen NEGATIVE Ur Propoxyphene Screen NEGATIVE Ur Barbiturates Screen NEGATIVE Ur Tricyclics Screen NEGATIVE Ur Phencyclidine Scrn NEGATIVE Ur Amphetamine Screen NEGATIVE U Methamphetamines Scrn NEGATIVE U Benzodiazepines Scrn POSITIVE H Urine Cocaine Screen NEGATIVE U Cannabinoids Screen NEGATIVE 02/12/18 17:05 WBC RBC Hgb Hct MCV MCH MCHC RDW Plt Count MPV Neut # (Auto) Lymph # (Auto) Cannon # (Auto) Eos # (Auto) Baso # (Auto) Absolute Nucleated RBC Nucleated RBC % VBG pH 7.327 Ionized Calcium 1.20 Sodium Potassium Chloride Carbon Dioxide Anion Gap BUN Creatinine Estimated GFR (MDRD) Glucose Calcium Total Bilirubin AST ALT Alkaline Phosphatase Total Protein Albumin Globulin Albumin/Globulin Ratio Lipase Urine Color Urine Clarity Urine pH Ur Specific [place] Urine Protein Urine Glucose (UA) Urine Ketones Urine Occult Blood Urine Nitrite Urine Bilirubin Urine Urobilinogen Ur Leukocyte Esterase Ur Microscopic Review Urine Culture Comments Urine Opiates Screen Ur Oxycodone Screen Urine Methadone Screen Ur Propoxyphene Screen Ur Barbiturates Screen Ur Tricyclics Screen Ur Phencyclidine Scrn Ur Amphetamine Screen U Methamphetamines Scrn U Benzodiazepines Scrn Urine Cocaine Screen U Cannabinoids Screen - Rads (name of study) L femur xray Radiology: Prelim report reviewed, EMP read contemporaneously, See rad report ( no acute abnormality.) PD MEDICAL DECISION MAKING - ED course Complexity details: reviewed results, re-evaluated patient, considered d ifferential, d/w patient ED course: 62-year-old female presents to the emergency department with left arm and leg pain. No chest pain, no back pain. No evidence of aortic dissection. No weakness on exam. Does have pain with movement. Her x-ray of the left femur is normal. There is no bony tenderness in the left upper extremity over the humerus or glenohumeral joint. Neurovascularly intact. NIH stroke scale of 0. We will continue supportive care and follow-up with her doctor. She is ambulating without any difficulty up and down the hallway in the emergency d epartment. She is using her arms freely as well. Patient counseled regarding signs and symptoms for which I believe and urgent re-evaluation would be necessary. Patient with good understanding of and agreement to plan and is comfortable going home at this time This document was made in part using voice recognition software. While efforts are made to proofread this document, sound alike and grammatical errors may occur. Departure - Departure Disposition: 01 Home, Self Care Clinical Impression: Muscle pain Condition: Good Instructions: ED Acute Pain [facility] Follow-Up: Dimitry Ruiz DO [Primary Care Provider] - Within 1 week Comments: All of your tests are normal tonight. You can use Motrin or Tylenol as needed for pain. Follow-up with your doctor for further care. Discharge Date/Time: 02/12/18 18:45
[2018-02-12 17:24] LABS: ALBUMIN 4.1 g/dL (3.2-5.5); ALBUMIN/GLOBULIN RATIO 1.4 (1.0-2.2); BILIRUBIN,TOTAL 0.3 mg/dL (0.2-1.0); CALCIUM 9.2 mg/dL (8.5-10.3); CREATININE 0.5 mg/dL (0.4-1.0)
[2018-02-12 17:30] LABS: BASOPHILS % (AUTO) 0.6 %; EOSINOPHILS # (AUTO) 0.1 10^3/uL (0.0-0.7); EOSINOPHILS % (AUTO) 1.3 %; HGB - HEMOGLOBIN 12.8 g/dL (12.0-16.0); LYMPHOCYTES # (AUTO) 1.8 10^3/uL (1.5-3.5); LYMPHOCYTES % (AUTO) 36.5 %; MEAN CORPUSCULAR HEMOGLOBIN 31.2 pg (27.0-31.0); MEAN CORPUSCULAR HGB CONC 33.8 g/dL (32.0-36.0); MEAN CORPUSCULAR VOLUME 92.3 fL (81.0-99.0); MEAN PLATELET VOLUME 7.2 fL (7.9-10.8); MONOCYTES # (AUTO) 0.3 10^3/uL (0.0-1.0); MONOCYTES % (AUTO) 6.2 %; NEUTROPHILS # (AUTO) 2.7 10^3/uL (1.5-6.6); NEUTROPHILS % (AUTO) 55.4 %; PLT - PLATELET COUNT 229 10^3/uL (130-450); RED BLOOD COUNT 4.09 10^6/uL (4.20-5.40); RED CELL DISTRIBUTION WIDTH 13.6 % (12.0-15.0); WHITE BLOOD COUNT 4.9 x10^3/uL (4.8-10.8)
[2018-02-12 17:33] LABS: VBG PH 7.327 (7.31-7.41)
--- NOTE | 2018-02-12 18:15 | XRAY Report ---
Reason: left leg pain, no injury Procedure Date: 02/12/2018 Accession Number: [id number] / [id number] Procedure: XR - Femur 2V LT CPT Code: FULL RESULT: EXAM: LEFT FEMUR RADIOGRAPHY EXAM DATE: 02/12/2018 05:47 PM. CLINICAL HISTORY: Acute left leg pain. The patient does not recall an episode of trauma. COMPARISON: Left knee series performed on 10/25/2016. TECHNIQUE: 2 views. FINDINGS: Bones: Normal bone mineralization. No fracture or bone lesion. Joints: The visualized hip joint is normal. No effusions. Medial left knee joint space narrowing, compatible with mild osteoarthritis. Soft Tissues: Normal. No soft tissue swelling. IMPRESSION: 1. Mild osteoarthritis involving the medial left knee joint compartment. 2. The remainder of the left femur radiography is unremarkable. [facility]
[2018-02-12 18:45] VITALS: BP 104/67
== END 2018-02-12 18:45 | disposition home or self-care (01) ==
LOC: ED 15:11
DX: M79.18 Myalgia, other site (principal); I10 Essential (primary) hypertension
CPT/HCPCS: 36415; 73552; 80053; 81003; 82330; 83690; 85025; 99283; A9270; 80306; 81001; 87086

== ENCOUNTER 2018-02-16 01:20 | Outpatient (CLI) | payer MEDICARE | END 2018-02-16 01:21 | disposition critical access hospital (66) | LOC: EMS 01:20 | PROVIDERS: ATTEND Surgery | DX: T42.4X3A Poisoning by benzodiazepines, assault, initial encounter (principal) | CPT/HCPCS: A0425; A0427 ==

== ENCOUNTER 2018-02-16 01:34 | Emergency (ER) | payer MEDICARE ==
--- NOTE | 2018-02-16 02:11 | ED Physician Documentation ---
<Noemí Schaefer - Last Filed: 02/16/18 19:15> PD HPI OVERDOSE - Stated complaint Stated Complaint: OD - Chief complaint Chief Complaint: MHE - Additional information Additional information: 62-year-old female with a history of bipolar affective disorder, schizophrenia and anorexia has developed some issues with blood in her stool over the past 4 weeks and she has been into see the sail repair person and she is been told she has ulcerative colitis or Crohn's disease. She is a poor historian and relates facts in a disjointed fashion. This evening she was in a hotel and she had some Xanax with her and she had about 40 half milligrams pills. She took 15 of these pills and called the crisis line. The DCR was dispatched to the hotel and discovered when she arrived there that the patient had taken another 10 Xanax. The patient had slurred speech, was groggy and was transported in the hospital by ambulance. On arrival here she states to me that she wants to because of this issue she is having with bleeding from her bowels. She is concerned that she may have cancer or that she will from this. She relates a recent history of a fall sutures to her forehead and evaluation at [facility] and here at [facility]. She is concerned that she has been misdiagnosed at [facility] and she wants to go to [facility]. PD PAST MEDICAL HISTORY - Present Medications Home Medications: Ambulatory Orders Medication Instructions Recorded Confirmed Pilocarpine HCl 1 tab PO QID 02/08/18 Buspirone HCl 1 tab PO BID 02/09/18 02/09/18 Lamotrigine [Lamotrigine ER] 200 mg PO DAILY 02/09/18 02/09/18 Trazodone HCl 150 mg PO QPM 02/09/18 02/09/18 - Allergies Allergies/Adverse Reactions: Allergies Allergy/AdvReac Type Severity Reaction Status Date / Time Sulfa (Sulfonamide Allergy Unknown Verified 02/09/18 22:42 Antibiotics) Results - Vitals Vitals: Oxygen O2 Source Room air - Labs Labs: Microbiology 02/16/18 08:50 Urine Culture - Final Urine,Clean Catch Beta Hemolytic Strep Group B Laboratory Tests 02/16/18 02/16/18 02/16/18 02:10 02:15 02:15 WBC 4.5 L RBC 3.52 L Hgb 11.4 L Hct 33.0 L MCV 93.8 MCH 32.4 H MCHC 34.5 RDW 13.0 Plt Count 229 MPV 7.3 L Neut # (Auto) 1.9 Lymph # (Auto) 2.0 [place] # (Auto) 0.5 Eos # (Auto) 0.1 Baso # (Auto) 0.0 Absolute Nucleated RBC 0.00 Nucleated RBC % 0.1 Sodium 136 Potassium 3.4 L Chloride 105 Carbon Dioxide 27 Anion Gap 4.0 L BUN 8 Creatinine 0.7 Estimated GFR (MDRD) 85 L Glucose 172 H POC Whole Bld Glucose 162 H Calcium 8.5 Total Bilirubin 0.4 AST 26 ALT 20 Alkaline Phosphatase 44 Troponin I Total Protein 6.0 L Albumin 3.5 Globulin 2.5 Albumin/Globulin Ratio 1.4 Lipase 24 Urine Color Urine Clarity Urine pH Ur Specific [place] Urine Protein Urine Glucose (UA) Urine Ketones Urine Occult Blood Urine Nitrite Urine Bilirubin Urine Urobilinogen Ur Leukocyte Esterase Urine RBC Urine WBC Ur Squamous Epith Cells Urine Bacteria Ur Microscopic Review Urine Culture Comments Urine HCG, Qual Salicylates < 6.0 Urine Opiates Screen Ur Oxycodone Screen Urine Methadone Screen Ur Propoxyphene Screen Acetaminophen < 10 L Ur Barbiturates Screen Ur Tricyclics Screen Ur Phencyclidine Scrn Ur Amphetamine Screen U Methamphetamines Scrn U Benzodiazepines Scrn Urine Cocaine Screen U Cannabinoids Screen Ethyl Alcohol < 5.0 02/16/18 02/16/18 02/16/18 02:15 08:40 08:50 WBC RBC Hgb Hct MCV MCH MCHC RDW Plt Count MPV Neut # (Auto) Lymph # (Auto) [place] # (Auto) Eos # (Auto) Baso # (Auto) Absolute Nucleated RBC Nucleated RBC % Sodium Potassium Chloride Carbon Dioxide Anion Gap BUN Creatinine Estimated GFR (MDRD) Glucose POC Whole Bld Glucose Calcium Total Bilirubin AST ALT Alkaline Phosphatase Troponin I < 0.04 Total Protein Albumin Globulin Albumin/Globulin Ratio Lipase Urine Color YELLOW Urine Clarity HAZY Urine pH 7.5 Ur Specific [place] 1.015 1.015 Urine Protein NEGATIVE Urine Glucose (UA) 100 H Urine Ketones NEGATIVE Urine Occult Blood NEGATIVE Urine Nitrite NEGATIVE Urine Bilirubin NEGATIVE Urine Urobilinogen 0.2 (NORMAL) Ur Leukocyte Esterase SMALL H Urine RBC 0-5 Urine WBC 6-10 H Ur Squamous Epith Cells FEW Squamous Urine Bacteria Rare Ur Microscopic Review INDICATED Urine Culture Comments INDICATED Urine HCG, Qual NEGATIVE Salicylates Urine Opiates Screen NEGATIVE Ur Oxycodone Screen NEGATIVE Urine Methadone Screen NEGATIVE Ur Propoxyphene Screen NEGATIVE Acetaminophen Ur Barbiturates Screen NEGATIVE Ur Tricyclics Screen NEGATIVE Ur Phencyclidine Scrn NEGATIVE Ur Amphetamine Screen NEGATIVE U Methamphetamines Scrn NEGATIVE U Benzodiazepines Scrn POSITIVE H Urine Cocaine Screen NEGATIVE U Cannabinoids Screen NEGATIVE Ethyl Alcohol PD MEDICAL DECISION MAKING - ED course ED course: 62-year-old female with bipolar affect disorder is acutely suicidal and has taken an overdose of Xanax. She will require further metabolism to clear for evaluation by social work and/or DCR. At the change of shift the patient's care is turned over to Dr. Schaefer. 1818 patient's primary doctor Sara here with patient's medication which she is due today Invega 234 mg 1-1/[address] Hawthorne gave the injection on her right buttock per RN. Signout given to Dr. Christy. See my ED note addendum from earlier. Departure - Departure Disposition: [facility] Hosp/Unit DC/Xfer Clinical Impression: Suicidal ideation Overdose of benzodiazepine Qualifiers: Encounter type: initial encounter Injury intent: intentional self-harm Qualified Code(s): T42.4X2A - Poisoning by benzodiazepines, intentional self- harm, initial encounter UTI (urinary tract infection) Qualifiers: Urinary tract infection type: acute cystitis Hematuria presence: without hematuria Qualified Code(s): N30.00 - Acute cystitis without hematuria Discharge Date/Time: 02/16/18 22:05 <José Miguel Gotti - Last Filed: 02/20/18 08:23> PD HPI OVERDOSE - History obtained from History obtained from: Patient, Other (DCR) - History of Present Illness Timing - onset: Today Subtance(s) ingested: Single, Benzo Associated symptoms: Altered mental status Contributing factors: Depresssed, Suicidal Similar symptoms before: Diagnosis (depression with SI) Recently seen: Clinic, Emergency Dept, Transferred - Additional information Additional information: 62-year-old female with a history of bipolar affective disorder, schizophrenia and anorexia has developed some issues with blood in her stool over the past 4 weeks and she has been into see the sail repair person and she is been told she has ulcerative colitis or Crohn's disease. She is a poor historian and relates facts in a disjointed fashion. This evening she was in a hotel and she had some Xanax with her and she had about 40 half milligrams pills. She took 15 of these pills and called the crisis line. The DCR was dispatched to the hotel and discovered when she arrived there that the patient had taken another 10 Xanax. The patient had slurred speech, was groggy and was transported in the hospital by ambulance. On arrival here she states to me that she wants to because of this issue she is having with bleeding from her bowels. She is concerned that she may have cancer or that she will from this. She relates a recent history of a fall sutures to her forehead and evaluation at [facility] and here at [facility]. She is concerned that she has been misdiagnosed at [facility] and she wants to go to [facility]. Review of Systems Constitutional: reports: Fatigue. denies: Fever, Chills Eyes: denies: Decreased vision Ears: denies: Ear pain PD PAST MEDICAL HISTORY - Past Medical History Cardiovascular: None, Hypertension Respiratory: Asthma Neuro: None Endocrine/Autoimmune: None GI: Other INVESTOR RELATIONS MANAGER: None : Chronic bladder infection, Frequency HEENT: Chronic hearing loss Psych: Depression, Anxiety, Schizophrenia Musculoskeletal: Fatigue, Chronic back pain, Other Derm: None - Past Surgical History Past Surgical History: No Ortho: Other /INVESTOR RELATIONS MANAGER: section - Social History Does the pt smoke?: No Smoking Status: Never smoker Does the pt drink ETOH?: No Does the pt have substance abuse?: No - Immunizations Immunizations are current?: Yes - POLST Patient has POLST: No PD ED PE NORMAL - Vitals Vital signs reviewed: Yes (normal ) - General General: No acute distress, Well developed/nourished, Other (Thin female with mild dysarthria is cooperative. ) - HEENT HEENT: PERRL, EOMI, Other (There is ecchymosis to the lateral forehead on the right and periorbital ecchymosis from recent head injury ) - Neck Neck: Supple, no meningeal sign, No bony TTP - Cardiac Cardiac: RRR, No murmur - Respiratory Respiratory: No respiratory distress, Clear bilaterally - Abdomen Abdomen: Soft, Non tender - Back Back: No CVA TTP, No spinal TTP - Derm Derm: Normal color, Warm and dry, No rash - Extremities Extremities: No deformity, Normal ROM s pain, No edema, No calf tenderness / cord - Neuro Neuro: business intelligence developer 2-12 intact, No motor deficit, No sensory deficit, Other (speech has mild dysarthria) Eye Opening: Spontaneous Motor: Obeys Commands Verbal: Oriented GCS Score: 15 - Psych Psych: Normal mood, Normal affect Results - Vitals Vitals: Oxygen O2 Source Room air - EKG (time done) 0202 Rate: Rate (enter#) (66) Rhythm: NSR, LAE Compare to prior EKG: Unchanged from prior EKG (SPT 07-17-17 no significant change ) Computer interpretation: Agree with computer - Labs Labs: Microbiology 02/16/18 08:50 Urine Culture - Final Urine,Clean Catch Beta Hemolytic Strep Group B Laboratory Tests 02/16/18 02/16/18 02/16/18 02:10 02:15 02:15 WBC 4.5 L RBC 3.52 L Hgb 11.4 L Hct 33.0 L MCV 93.8 MCH 32.4 H MCHC 34.5 RDW 13.0 Plt Count 229 MPV 7.3 L Neut # (Auto) 1.9 Lymph # (Auto) 2.0 [place] # (Auto) 0.5 Eos # (Auto) 0.1 Baso # (Auto) 0.0 Absolute Nucleated RBC 0.00 Nucleated RBC % 0.1 Sodium 136 Potassium 3.4 L Chloride 105 Carbon Dioxide 27 Anion Gap 4.0 L BUN 8 Creatinine 0.7 Estimated GFR (MDRD) 85 L Glucose 172 H POC Whole Bld Glucose 162 H Calcium 8.5 Total Bilirubin 0.4 AST 26 ALT 20 Alkaline Phosphatase 44 Troponin I Total Protein 6.0 L Albumin 3.5 Globulin 2.5 Albumin/Globulin Ratio 1.4 Lipase 24 Urine Color Urine Clarity Urine pH Ur Specific [place] Urine Protein Urine Glucose (UA) Urine Ketones Urine Occult Blood Urine Nitrite Urine Bilirubin Urine Urobilinogen Ur Leukocyte Esterase Urine RBC Urine WBC Ur Squamous Epith Cells Urine Bacteria Ur Microscopic Review Urine Culture Comments Urine HCG, Qual Salicylates < 6.0 Urine Opiates Screen Ur Oxycodone Screen Urine Methadone Screen Ur Propoxyphene Screen Acetaminophen < 10 L Ur Barbiturates Screen Ur Tricyclics Screen Ur Phencyclidine Scrn Ur Amphetamine Screen U Methamphetamines Scrn U Benzodiazepines Scrn Urine Cocaine Screen U Cannabinoids Screen Ethyl Alcohol < 5.0 02/16/18 02/16/18 02/16/18 02:15 08:40 08:50 WBC RBC Hgb Hct MCV MCH MCHC RDW Plt Count MPV Neut # (Auto) Lymph # (Auto) [place] # (Auto) Eos # (Auto) Baso # (Auto) Absolute Nucleated RBC Nucleated RBC % Sodium Potassium Chloride Carbon Dioxide Anion Gap BUN Creatinine Estimated GFR (MDRD) Glucose POC Whole Bld Glucose Calcium Total Bilirubin AST ALT Alkaline Phosphatase Troponin I < 0.04 Total Protein Albumin Globulin Albumin/Globulin Ratio Lipase Urine Color YELLOW Urine Clarity HAZY Urine pH 7.5 Ur Specific [place] 1.015 1.015 Urine Protein NEGATIVE Urine Glucose (UA) 100 H Urine Ketones NEGATIVE Urine Occult Blood NEGATIVE Urine Nitrite NEGATIVE Urine Bilirubin NEGATIVE Urine Urobilinogen 0.2 (NORMAL) Ur Leukocyte Esterase SMALL H Urine RBC 0-5 Urine WBC 6-10 H Ur Squamous Epith Cells FEW Squamous Urine Bacteria Rare Ur Microscopic Review INDICATED Urine Culture Comments INDICATED Urine HCG, Qual NEGATIVE Salicylates Urine Opiates Screen NEGATIVE Ur Oxycodone Screen NEGATIVE Urine Methadone Screen NEGATIVE Ur Propoxyphene Screen NEGATIVE Acetaminophen Ur Barbiturates Screen NEGATIVE Ur Tricyclics Screen NEGATIVE Ur Phencyclidine Scrn NEGATIVE Ur Amphetamine Screen NEGATIVE U Methamphetamines Scrn NEGATIVE U Benzodiazepines Scrn POSITIVE H Urine Cocaine Screen NEGATIVE U Cannabinoids Screen NEGATIVE Ethyl Alcohol PD MEDICAL DECISION MAKING - ED course Complexity details: reviewed old records, reviewed results, re-evaluated patient, considered differential, d/w patient ED course: 62-year-old female with bipolar affect disorder is acutely suicidal and has taken an overdose of Xanax. She will require further metabolism to clear for evaluation by social work and/or DCR. At the change of shift the patient's care is turned over to Dr. Schaefer. 1818 patient's primary doctor Sara here with patient's medication which she is due today Invega 234 mg 1-1/[address] Hawthorne gave the injection on her right buttock per RN. Signout given to Dr. Christy. See my ED note addendum from earlier.
[2018-02-16 02:30] LABS: BASOPHILS % (AUTO) 0.6 %; EOSINOPHILS # (AUTO) 0.1 10^3/uL (0.0-0.7); EOSINOPHILS % (AUTO) 2.6 %; HGB - HEMOGLOBIN 11.4 g/dL (12.0-16.0); LYMPHOCYTES % (AUTO) 44.7 %; MEAN CORPUSCULAR HEMOGLOBIN 32.4 pg (27.0-31.0); MEAN CORPUSCULAR HGB CONC 34.5 g/dL (32.0-36.0); MEAN CORPUSCULAR VOLUME 93.8 fL (81.0-99.0); MEAN PLATELET VOLUME 7.3 fL (7.9-10.8); MONOCYTES # (AUTO) 0.5 10^3/uL (0.0-1.0); MONOCYTES % (AUTO) 10.8 %; NEUTROPHILS # (AUTO) 1.9 10^3/uL (1.5-6.6); NEUTROPHILS % (AUTO) 41.3 %; PLT - PLATELET COUNT 229 10^3/uL (130-450); RED BLOOD COUNT 3.52 10^6/uL (4.20-5.40); WHITE BLOOD COUNT 4.5 x10^3/uL (4.8-10.8)
[2018-02-16 02:35] LABS: ACETAMINOPHEN < 10 ug/mL (10-30); ALBUMIN 3.5 g/dL (3.2-5.5); ALBUMIN/GLOBULIN RATIO 1.4 (1.0-2.2); ALKALINE PHOSPHATASE 44 IU/L (42-121); ALT ALANINE AMINOTRANSFERASE 20 IU/L (10-60); AST ASPARTATE AMINOTRANSFERASE 26 IU/L (10-42); BILIRUBIN,TOTAL 0.4 mg/dL (0.2-1.0); BUN - BLOOD UREA NITROGEN 8 mg/dL (6-20); CALCIUM 8.5 mg/dL (8.5-10.3); CARBON DIOXIDE - CO2 27 mmol/L (21-32); CHLORIDE 105 mmol/L (101-111); CREATININE 0.7 mg/dL (0.4-1.0); GFR - MDRD 85 (>89); GLUCOSE 172 mg/dL (70-100); LIPASE 24 U/L (22-51); SALICYLATE < 6.0 mg/dL; SODIUM 136 mmol/L (135-145)
[2018-02-16] MEDS ORDERED: SODIUM CHLORIDE 0.9% 500 ML IV ONE (04:45)
[2018-02-16 09:19] LABS: MUDS CUTOFF CONCENTRATIONS CUTOFF CONC BELOW:
[2018-02-16 09:21] LABS: BILIRUBIN,URINE NEGATIVE (NEGATIVE); GLUCOSE, URINE (UA) 100 mg/dL (NEGATIVE); KETONES,URINE (UA) NEGATIVE (NEGATIVE); LEUKOCYTE ESTERASE, URINE SMALL (NEGATIVE); NITRITE,URINE NEGATIVE (NEGATIVE); OCCULT BLOOD,URINE NEGATIVE (NEGATIVE); PH,URINE 7.5 PH (5.0-7.5); PROTEIN,URINE NEGATIVE (NEGATIVE); UROBILINOGEN,URINE 0.2 (NORMAL) E.U./dL (NORMAL)
[2018-02-16 09:28] LABS: CLARITY,URINE HAZY (CLEAR)
[2018-02-16 09:35] LABS: AMPHETAMINE SCREEN,URINE NEGATIVE (NEGATIVE); BACTERIA,URINE Rare /HPF (None Seen); BENZODIAZEPINES SCREEN, URINE POSITIVE (NEGATIVE); COCAINE SCREEN URINE NEGATIVE (NEGATIVE); METHADONE SCREEN, URINE NEGATIVE (NEGATIVE); METHAMPHETAMINES SCREEN, URINE NEGATIVE (NEGATIVE); OPIATE SCREEN, URINE NEGATIVE (NEGATIVE); OXYCODONE SCREEN, URINE NEGATIVE (NEGATIVE); PROPOXYPHENE SCREEN, URINE NEGATIVE (NEGATIVE); RBC,URINE 0-5 /HPF (0-5); SQUAMOUS EPITHELIAL CELL,UR FEW Squamous (<= Few); TRICYCLIC ANTIDEPRESSANT,URINE NEGATIVE (NEGATIVE)
[2018-02-16] MEDS ORDERED: cephALEXin 250 MG CAPSULE PO STA (17:42)
--- NOTE | 2018-02-16 20:17 | ED Physician Documentation ---
ED Addendum - Addendum Addendum: 02/16/18 20:16 Patient placed on an involuntary psychiatric hold by the [facility] Brian Lobato. Haley NICOLE accepts to [employer] COBRA forms filled out at 2015
[2018-02-16 20:51] LABS: HCG UR QUAL NEGATIVE
[2018-02-16 21:05] VITALS: BP 140/98
== END 2018-02-16 22:05 ==
LOC: EDUNIT# → ED 01:34
DX: T42.4X2A Poisoning by benzodiazepines, intentional self-harm, initial encounter (principal); N30.00 Acute cystitis without hematuria
CPT/HCPCS: 36415; 80053; 81001; 81025; 83690; 84484; 85025; 87086; 93005; 96360; 99284; 99285; A9270; 80306; 80307; 80320; 80329; 81003

== ENCOUNTER 2018-02-16 21:41 | Outpatient (CLI) | payer MEDICARE | END 2018-02-16 21:42 | LOC: EMS 21:41 | PROVIDERS: ATTEND Surgery | DX: T65.93XA Toxic effect of unspecified substance, assault, initial encounter (principal); R45.851 Suicidal ideations | CPT/HCPCS: A0170; A0425; A0428 ==

== ENCOUNTER 2021-04-12 12:49 | Outpatient (CLI) | payer MEDICARE | END 2021-04-12 12:50 | disposition EMS.NT | LOC: EMS 12:49 | DX: Z03.89 Encounter for observation for other suspected diseases and conditions ruled out (principal) ==

== ENCOUNTER 2021-05-12 10:44 | Outpatient (CLI) | payer MEDICARE ==
--- NOTE | 2021-05-12 13:34 | MRI Report ---
PROCEDURE: Knee LT W/O INDICATIONS: INTERNAL DERANGEMENT OF LEFT KNEE TECHNIQUE: Noncontrast sagittal PD fast spin echo and T2 fast spin echo with fat saturation, sagittal 3-D spoile d GE with fat saturation; coronal T1 spin echo and PD fast spin echo with fat saturation, and axial P D fast spin echo with fat saturation through the knee. COMPARISON: Left femur radiographs 02/12/2018. Left knee radiographs 10/25/2016. FINDINGS: Image quality: Excellent. 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 Posterior cruciate ligament: Intact. Medial collateral ligament: Intact. Lateral collateral ligament: Intact. Medial meniscus: There is a diminutive appearance of the posterior horn and body of the medial menis cus that may be secondary to a prior partial meniscectomy or chronic degenerative tearing and macerat ion. Intermediate signal intensity in the posterior horn related to complex tearing or fibrovascular granulation tissue. No definite uptake of [place] joint fluid is seen. Lateral meniscus: Intact. Medial and lateral tendons: The semimembranosus tendon insertions appear intact. Visualized portion s of the pes anserinus tendons appear normal. The popliteus tendon appears intact. Iliotibial band appears normal. Anterior structures: The quadriceps and patellar tendons appear intact. Patellar alignment is day[place] l. No femoral trochlear dysplasia or ventral trochlear prominence. Mild scarring is seen in Hoffa's fat pad. Bones: No acute trabecular bone injury or fracture. Medial femorotibial cartilage: Full-thickness cartilage loss is seen in the weightbearing portion of the medial femorotibial compartment with mild subchondral edema and marginal osteophyte formation. Lateral femorotibial cartilage: Mild surface irregularity is seen articular cartilages of small crystal inal osteophytes. Patellofemoral cartilage: Mild cartilage thinning in the median ridge of the patella and trochlear g roove. Soft tissues: There is a small joint effusion. There is a small medial popliteal cyst. The musculat ure surrounding the knee is normal in bulk. 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 2.Diminutive appearance of the posterior horn and body of the medial meniscus with superimposed inter mediate signal intensity within the posterior horn is likely related to a prior partial meniscectomy and fibrovascular granulation tissue, versus chronic degenerative tearing and maceration. 3.Full-thickness cartilage loss in the medial femorotibial compartment with mild subchondral edema. M ild grade II chondromalacia in the lateral and anterior compartments. 4.Small joint effusion. Small medial popliteal cyst. Reviewed by: Luiz Parker MD on 05/12/2021 12:33 PM AKBRENNA Approved by: Luiz Parker MD on 05/12/2021 12:33 PM AKBRENNA Station ID: [id number]
== END 2021-05-12 10:45 | disposition home or self-care (01) ==
LOC: DI 10:44
PROVIDERS: ATTEND Family Medicine
DX: S83.512A Sprain of anterior cruciate ligament of left knee, initial encounter (principal); M94.262 Chondromalacia, left knee; M25.462 Effusion, left knee; M71.22 Synovial cyst of popliteal space [Baker], left knee